=== PATIENT | female | born 1955 | race Caucasian/White ===

== ENCOUNTER → 2016-11-03 | Outpatient (CLI) | payer OTHER ==
--- NOTE | 2016-11-04 10:22 | MM ---
Reason for exam: screening (asymptomatic). Last mammogram was performed 3 years and 3 months ago. History: Patient is postmenopausal. Benign excisional biopsy of the left breast. Took progesterone for 1 year 6 months. Physical Findings: A clinical breast exam by your physician is recommended on an annual basis and results should be correlated with mammographic findings. MG Screening Mammo w CAD Bilateral CC and MLO view(s) were taken. Prior study comparison: July 21, 2013, bilateral digital screening mammo w/CAD. December 18, 2011, bilateral digital screening mammo w/CAD. The breast tissue is heterogeneously dense. This may lower the sensitivity of mammography. Finding: There are typically benign round calcifications in the left breast. There is no discrete abnormality. ASSESSMENT: Benign, BI-RAD 2 RECOMMENDATION: Routine screening mammogram of both breasts in 1 year.
== END | disposition home or self-care (01) ==
LOC: RADMAMWWP 13:13
PROVIDERS: ATTEND Family Medicine
DX: Z12.31 Encounter for screening mammogram for malignant neoplasm of breast (principal)

== ENCOUNTER → 2018-08-09 | Outpatient (CLI) | payer OTHER ==
--- NOTE | 2018-08-15 14:43 | MM ---
Reason for exam: screening (asymptomatic). Last mammogram was performed 1 year and 9 months ago. History: Patient is postmenopausal. Benign excisional biopsy of the left breast. Took progesterone for 1 year 6 months. Physical Findings: A clinical breast exam by your physician is recommended on an annual basis and results should be correlated with mammographic findings. MG 3D Screening Mammo W/Cad Bilateral CC and MLO view(s) were taken. Prior study comparison: November 03, 2016, bilateral MG screening mammo w CAD. July 21, 2013, bilateral digital screening mammo w/CAD. There are scattered fibroglandular densities. New faint oil cyst right anterior upper outer quadrant. No significant changes when compared with prior studies. ASSESSMENT: Negative, BI-RAD 1 RECOMMENDATION: Routine screening mammogram of both breasts in 1 year.
== END | disposition home or self-care (01) ==
LOC: RADMAMWWP 07:22
PROVIDERS: ATTEND Family Medicine
DX: Z12.31 Encounter for screening mammogram for malignant neoplasm of breast (principal)
CPT/HCPCS: 77063; 77067

== ENCOUNTER → 2018-11-15 | Outpatient (CLI) | payer OTHER ==
--- NOTE | 2018-11-15 14:33 | US ---
EXAMINATION TYPE: US venous doppler duplex LE DATE OF EXAM: 11/15/2018 1:37 PM COMPARISON: NONE CLINICAL HISTORY: M79.661 pain right lower limb M79.662 pain left. Frequent leg cramps x 3 months, ge ts worse at night SIDE PERFORMED: Bilateral TECHNIQUE: The lower extremity deep venous system is examined utilizing real time linear array sonog tracey with graded compression, doppler sonography and color-flow sonography. VESSELS IMAGED: External Iliac Vein (EIV) Common Femoral Vein Deep Femoral Vein Greater Saphenous Vein * Femoral Vein Popliteal Vein Small Saphenous Vein * Proximal Calf Veins (* superficial vessels) Grayscale, color doppler, spectral doppler imaging performed of the deep veins of the lower extremiti es. There is normal flow, compressibility, vascular waveforms. Right Leg: Appears negative for DVT Left Leg: Appears negative for DVT IMPRESSION: No sonographic evidence of deep venous thrombosis within the visualized lower extremities .
== END | disposition home or self-care (01) ==
LOC: RADUSWWP 13:07
PROVIDERS: ATTEND Family Medicine
DX: M79.661 Pain in right lower leg (principal); M79.662 Pain in left lower leg
CPT/HCPCS: 93970

== ENCOUNTER → 2018-11-30 | Outpatient (CLI) | payer OTHER | END | disposition home or self-care (01) | LOC: RADECHMAIN 12:13 | PROVIDERS: ATTEND Family Medicine | DX: R00.0 Tachycardia, unspecified (principal); I10 Essential (primary) hypertension | CPT/HCPCS: 93270 ==

== ENCOUNTER → 2021-04-25 | Outpatient (CLI) | payer MEDICARE ==
--- NOTE | 2021-04-29 10:40 | MM ---
Reason for exam: screening (asymptomatic). Last mammogram was performed 2 years and 9 months ago. History: Patient is postmenopausal. Benign excisional biopsy of the left breast. Took hormonal contraceptives for 6 months. Took progesterone for 1 year 6 months. Physical Findings: A clinical breast exam by your physician is recommended on an annual basis and results should be correlated with mammographic findings. MG 3D Screening Mammo W/Cad Bilateral CC and MLO view(s) were taken. Prior study comparison: August 09, 2018, bilateral MG 3d screening mammo w/cad. There are scattered fibroglandular densities. Focal asymmetry, irregular, changed from prior. This finding is changed when compared with previous exams. ASSESSMENT: Incomplete: need additional imaging evaluation, BI-RAD 0 RECOMMENDATION: Special view mammogram of the right breast. If lesion persists on supplemental views, image directed ultrasound is recommended. [facility] will attempt to contact patient to return for supplemental views and ultrasound if indicated.
== END | disposition home or self-care (01) ==
LOC: RADMAMWWP 07:59
PROVIDERS: ATTEND Family Medicine
DX: Z12.31 Encounter for screening mammogram for malignant neoplasm of breast (principal); E78.00 Pure hypercholesterolemia, unspecified; Z82.49 Family history of ischemic heart disease and other diseases of the circulatory system
CPT/HCPCS: 77063; 77067

== ENCOUNTER → 2021-05-14 | Outpatient (CLI) | payer MEDICARE ==
--- NOTE | 2021-05-14 09:58 | MM ---
Reason for exam: additional evaluation requested from abnormal screening. Last mammogram was performed 1 month ago. History: Patient is postmenopausal. Benign excisional biopsy of the left breast. Took hormonal contraceptives for 6 months. Took progesterone for 1 year 6 months. Physical Findings: Nurse did not find any significant physical abnormalities on exam. MG 3D Work Up W/Cad RT CC and ML view(s) were taken of the right breast. Prior study comparison: April 25, 2021, bilateral MG 3d screening mammo w/cad. August 09, 2018, bilateral MG 3d screening mammo w/cad. November 03, 2016, bilateral MG screening mammo w CAD. Focal asymmetry compresses. These results were verbally communicated with the patient and result sheet given to the patient on 05/14/21. ASSESSMENT: Probably benign, BI-RAD 3 RECOMMENDATION: Follow-up diagnostic mammogram of the right breast in 6 months. (2 views)
== END | disposition home or self-care (01) ==
LOC: RADMAMWWP 08:55
PROVIDERS: ATTEND Family Medicine
DX: R92.8 Other abnormal and inconclusive findings on diagnostic imaging of breast (principal)
CPT/HCPCS: 77065; G0279; 77061

== ENCOUNTER → 2021-10-30 | Outpatient (CLI) | payer MEDICARE ==
--- NOTE | 2021-10-30 09:54 | MM ---
Reason for exam: follow-up at short interval from prior study. Last mammogram was performed 6 months ago. History: Patient is postmenopausal. Benign excisional biopsy of the left breast. Took hormonal contraceptives for 6 months. Took progesterone for 1 year 6 months. Physical Findings: A clinical breast exam by your physician is recommended on an annual basis and results should be correlated with mammographic findings. MG 3D Diag Mammo W/Cad RT CC and MLO view(s) were taken of the right breast. Prior study comparison: May 14, 2021, right breast MG 3d work up w/cad RT. April 25, 2021, bilateral MG 3d screening mammo w/cad. August 09, 2018, bilateral MG 3d screening mammo w/cad. November 03, 2016, bilateral MG screening mammo w CAD. There are scattered fibroglandular densities. Asymmetric density/global asymmetry outer right Cc view slightly more prominent from older priors, unchanged for 6 months. Ongoing short follow up recommended. Results were given to the patient verbally at the time of the exam. ASSESSMENT: Probably benign, BI-RAD 3 RECOMMENDATION: Follow-up diagnostic mammogram of both breasts in 6 months.
== END | disposition home or self-care (01) ==
LOC: RADMAMWWP 08:17
PROVIDERS: ATTEND Family Medicine
DX: R92.8 Other abnormal and inconclusive findings on diagnostic imaging of breast (principal)
CPT/HCPCS: 77065; G0279; 77061

== ENCOUNTER 2021-11-10 23:49 | Emergency (ER) | payer MEDICARE ==
[2021-11-11 00:30] VITALS: TEMP 97
[2021-11-11 01:22] LABS: Basophils # (A) 0.1 k/uL (0-0.2); Basophils % (A) 1 %; Eosinophils # (A) 0.3 k/uL (0-0.7); Eosinophils % (A) 2 %; HCT 42.5 % (34.0-46.0); Lymphocytes # (A) 1.8 k/uL (1.0-4.8); Lymphocytes % (A) 15 %; MCH 30.2 pg (25.0-35.0); MCHC 32.8 g/dL (31.0-37.0); Monocytes # (A) 0.5 k/uL (0-1.0); Monocytes % (A) 4 %; Neutrophils # (A) 8.9 k/uL (1.3-7.7); Neutrophils % (A) 76 %; Platelet Count 309 k/uL (150-450); RBC 4.62 m/uL (3.80-5.40); RDW 12.8 % (11.5-15.5); WBC 11.7 k/uL (3.8-10.6)
[2021-11-11 01:37] VITALS: RESP 16
[2021-11-11 02:01] LABS: ALT 26 U/L (4-34); AST 29 U/L (14-36); African American GFR (CKD) 89 (>60 ml/min/1.73 sqM); Albumin 4.3 g/dL (3.5-5.0); Alcohol <10 mg/dL; Alkaline Phosphatase 87 U/L (38-126); Amylase 77 U/L (30-110); Anion Gap 9 mmol/L; Blood Urea Nitrogen 22 mg/dL (7-17); Calcium 9.4 mg/dL (8.4-10.2); Carbon Dioxide 24 mmol/L (22-30); Chloride 105 mmol/L (98-107); Glucose 163 mg/dL (74-99); Lipase 166 U/L (23-300); Non-African American GFR(CKD) 77 (>60 ml/min/1.73 sqM); Potassium 3.7 mmol/L (3.5-5.1); Sodium 138 mmol/L (137-145); Total Bilirubin 0.5 mg/dL (0.2-1.3); Total Protein 7.2 g/dL (6.3-8.2)
[2021-11-11] MEDS ORDERED: KETOROLAC 15 MG/ML 1 ML VIAL IVP STA (02:06)
[2021-11-11] MEDS ORDERED: MORPHINE SULFATE 4 MG/ML SYRINGE IVP STA (02:07)
--- NOTE | 2021-11-11 02:07 | ED ---
Abdominal Pain HPI - General Chief Complaint: Abdominal Pain Stated Complaint: Abdominal Pain Time Seen by Provider: 11/11/21 01:32 Source: patient Mode of arrival: wheelchair Limitations: no limitations - History of Present Illness Initial Comments: Mikala is a 66-year-old female who presents the ER today for evaluation of right lower quadrant right-sided flank pain that began 2 hours prior to arrival. Pain began without provocation is associated with nausea no change in bowel habits. Patient reports she's urinated once since the pain began she didn't noticed any gross hematuria but did have some dysuria with that. Patient has no history of kidney stones. Previous abdominal surgical history includes , hysterectomy and cholecystectomy, she does still have her appendix. - Related Data Home Medications Medication Instructions Recorded Confirmed Bisoprol/Hydrochlorothiazide [Ziac 1 each PO DAILY 11/24/14 11/24/14 5-6.25 MG] FLUoxetine HCL [PROzac] 60 mg PO DAILY 11/24/14 11/24/14 [place]-3 Acid Ethyl Esters [Lovaza] 2 gm PO DAILY 11/24/14 11/24/14 Previous Rx's Medication Instructions Recorded Ibuprofen [Motrin] 600 mg PO Q8HR PRN #20 tab 11/24/14 Methocarbamol [Robaxin-750] 750 mg PO TID PRN #30 tablet 11/24/14 Allergies Allergy/AdvReac Type Severity Reaction Status Date / Time No Known Allergies Allergy Verified 11/11/21 00:27 Review of Systems ROS Statement: Those systems with pertinent positive or pertinent negative responses have been documented in the HPI. ROS Other: All systems not noted in ROS Statement are negative. Past Medical History Past Medical History: Hyperlipidemia History of Any Multi-Drug Resistant Organisms: None Reported Past Surgical History: Cholecystectomy Past Psychological History: No Psychological Hx Reported Smoking Status: Never smoker Past Alcohol Use History: None Reported Past Drug Use History: None Reported General Exam - General Exam Comments Initial Comments: Physical Exam GENERAL: Patient crying, appearing uncomfortable HENT: Normocephalic, Atraumatic. EYES: PERRL, EOMI PULMONARY: Unlabored respirations. CARDIOVASCULAR: RRR Warm and well perfused extremities ABDOMEN: Non-distended, soft, non-peritoneal SKIN: No rashes or bruising : Deferred NEUROLOGIC: Alert and oriented Normal speech Normal gait MUSCULOSKELETAL: Moving all extremities with no apparent injury PSYCHIATRIC: No SI/HI Limitations: no limitations Course Vital Signs 11/11/21 11/11/21 11/11/21 00:27 01:37 01:45 Temperature 97.0 F L Pulse Rate 71 85 20 L Respiratory 20 16 Rate Blood Pressure 125/72 121/65 123/77 O2 Sat by Pulse 99 98 99 Oximetry 11/11/21 11/11/21 11/11/21 02:15 02:45 05:20 Temperature Pulse Rate 24 L 16 L 78 Respiratory 16 Rate Blood Pressure 127/72 112/100 119/73 O2 Sat by Pulse 97 98 Oximetry Medical Decision Making - Medical Decision Making Labs and x-ray were ordered by triage, on x-ray patient refused to stand with shaking reported her pain was too bad Patient was taken to an exam room, she has right-sided flank pain for 2 hours duration suspicious for kidney stone labs and imaging were obtained which confirmed a right-sided 5 mm stone with some hydronephrosis. Patient received Toradol and morphine upon reevaluation she was sleeping comfortably. Patient was provided with Tylenol 3 and Zofran for home, advised to hydrate and return for any worsening symptoms. - Lab Data Result diagrams: 11/11/21 00:46 11/11/21 00:46 Lab Results 11/11/21 11/11/21 11/11/21 Range/Units 00:46 00:46 00:46 WBC 11.7 H (3.8-10.6) k/uL RBC 4.62 (3.80-5.40) m/uL Hgb 14.0 (11.4-16.0) gm/dL Hct 42.5 (34.0-46.0) % MCV 92.0 (80.0-100.0) fL MCH 30.2 (25.0-35.0) pg MCHC 32.8 (31.0-37.0) g/dL RDW 12.8 (11.5-15.5) % Plt Count 309 (150-450) k/uL MPV 7.0 Neutrophils % 76 % Lymphocytes % 15 % Monocytes % 4 % Eosinophils % 2 % Basophils % 1 % Neutrophils # 8.9 H (1.3-7.7) k/uL Lymphocytes # 1.8 (1.0-4.8) k/uL Monocytes # 0.5 (0-1.0) k/uL Eosinophils # 0.3 (0-0.7) k/uL Basophils # 0.1 (0-0.2) k/uL Sodium 138 (137-145) mmol/L Potassium 3.7 (3.5-5.1) mmol/L Chloride 105 (98-107) mmol/L Carbon Dioxide 24 (22-30) mmol/L Anion Gap 9 mmol/L BUN 22 H (7-17) mg/dL Creatinine 0.81 (0.52-1.04) mg/dL Est GFR (CKD-EPI)AfAm 89 (>60 ml/min/1.73 sqM) Est GFR (CKD-EPI)NonAf 77 (>60 ml/min/1.73 sqM) Glucose 163 H (74-99) mg/dL Lactic Ac Sepsis Rflx Plasma Lactic Acid [place] 2.7 H* (0.7-2.0) mmol/L Calcium 9.4 (8.4-10.2) mg/dL Total Bilirubin 0.5 (0.2-1.3) mg/dL AST 29 (14-36) U/L ALT 26 (4-34) U/L Alkaline Phosphatase 87 (38-126) U/L Total Protein 7.2 (6.3-8.2) g/dL Albumin 4.3 (3.5-5.0) g/dL Amylase 77 (30-110) U/L Lipase 166 (23-300) U/L Urine Color Urine Appearance (Clear) Urine pH (5.0-8.0) Ur Specific [place] (1.001-1.035) Urine Protein (Negative) Urine Glucose (UA) (Negative) Urine Ketones (Negative) Urine Blood (Negative) Urine Nitrite (Negative) Urine Bilirubin (Negative) Urine Urobilinogen (<2.0) mg/dL Ur Leukocyte Esterase (Negative) Urine RBC (0-5) /hpf Urine WBC (0-5) /hpf Ur Squamous Epith Cells (0-4) /hpf Calcium Oxalate Crystal (None) /hpf Urine Mucus (None) /hpf Urine Yeast (Budding) (None) /hpf Serum Alcohol <10 mg/dL 11/11/21 11/11/21 Range/Units 02:16 03:32 WBC (3.8-10.6) k/uL RBC (3.80-5.40) m/uL Hgb (11.4-16.0) gm/dL Hct (34.0-46.0) % MCV (80.0-100.0) fL MCH (25.0-35.0) pg MCHC (31.0-37.0) g/dL RDW (11.5-15.5) % Plt Count (150-450) k/uL MPV Neutrophils % % Lymphocytes % % Monocytes % % Eosinophils % % Basophils % % Neutrophils # (1.3-7.7) k/uL Lymphocytes # (1.0-4.8) k/uL Monocytes # (0-1.0) k/uL Eosinophils # (0-0.7) k/uL Basophils # (0-0.2) k/uL Sodium (137-145) mmol/L Potassium (3.5-5.1) mmol/L Chloride (98-107) mmol/L Carbon Dioxide (22-30) mmol/L Anion Gap mmol/L BUN (7-17) mg/dL Creatinine (0.52-1.04) mg/dL Est GFR (CKD-EPI)AfAm (>60 ml/min/1.73 sqM) Est GFR (CKD-EPI)NonAf (>60 ml/min/1.73 sqM) Glucose (74-99) mg/dL Lactic Ac Sepsis Rflx Y Plasma Lactic Acid [place] (0.7-2.0) mmol/L Calcium (8.4-10.2) mg/dL Total Bilirubin (0.2-1.3) mg/dL AST (14-36) U/L ALT (4-34) U/L Alkaline Phosphatase (38-126) U/L Total Protein (6.3-8.2) g/dL Albumin (3.5-5.0) g/dL Amylase (30-110) U/L Lipase (23-300) U/L Urine Color Yellow Urine Appearance Clear (Clear) Urine pH 5.5 (5.0-8.0) Ur Specific [place] >1.050 H (1.001-1.035) Urine Protein Trace H (Negative) Urine Glucose (UA) Negative (Negative) Urine Ketones Negative (Negative) Urine Blood Large H (Negative) Urine Nitrite Negative (Negative) Urine Bilirubin Negative (Negative) Urine Urobilinogen <2.0 (<2.0) mg/dL Ur Leukocyte Esterase Moderate H (Negative) Urine RBC 114 H (0-5) /hpf Urine WBC 11 H (0-5) /hpf Ur Squamous Epith Cells <1 (0-4) /hpf Calcium Oxalate Crystal Rare H (None) /hpf Urine Mucus Rare H (None) /hpf Urine Yeast (Budding) Occasional H (None) /hpf Serum Alcohol mg/dL Disposition Clinical Impression: Kidney stone on right side Disposition: HOME SELF-CARE Condition: Stable Additional Instructions: You have a small kidney stone on the right hand side, you are given pain and nausea medications for home. Return to the ER if pain becomes unbearable, you are vomiting too much to tolerate medications or you develop any new or concerning symptoms. Is patient prescribed a controlled substance at d/c from ED?: No Referrals: Jorje Torres Jr, DO [Primary Care Provider] - 1-2 days
--- NOTE | 2021-11-11 02:43 | CT ---
EXAMINATION TYPE: CT abdomen pelvis w con DATE OF EXAM: 11/11/2021 COMPARISON: 11/24/2014 HISTORY: RLQ pain with N&V hx of cholecystectomy CT DLP: 925 mGycm Automated exposure control for dose reduction was used. CONTRAST: Performed with IV Contrast, patient injected with 100 mL of Isovue 370. Images obtained from the diaphragm to the floor the pelvis with IV contrast. Lung bases show no pulmonary consolidation. There is minimal subsegmental atelectasis right lower lob e. Heart is top normal in size. No pericardial effusion. There is small hiatal hernia. There are clips from cholecystectomy. Liver spleen pancreas and stomach appear intact. The bile ducts are not dilated. There is no adrenal mass. Kidneys show normal size. There is enhancement of both kidneys. There is a delayed right sided pyelogram. There is right-sided hydronephrosis and hydroureter. There is 5 mm obs tructing calculus in the lower right ureter. The bladder distends smoothly. No inguinal hernia. No ev idence of a pelvic mass. No free fluid in the pelvis. There is 2 cm fat-containing umbilical hernia. Appendix is not seen. No significant thickened appendix. The lumbar vertebra have normal alignment. Disc spaces are fairly normal. No compression fracture. [place] pelvis is intact. The hip joints are intact. IMPRESSION: Obstructing calculus in the lower right ureter with mild right-sided hydronephrosis and hydroureter. Obstruction appears new compared to the old exam.
[2021-11-11 04:08] LABS: Appearance,Urine Clear (Clear); Bilirubin,Urine Negative (Negative); Blood,Urine Large (Negative); Budding Yeast,Urine Occasional /hpf; Calcium Oxalate Crystals,Urine Rare /hpf; Color,Urine Yellow; Glucose,Urine (UA) Negative (Negative); Ketones,Urine Negative (Negative); Leukocyte Esterase,Urine Moderate (Negative); Mucus,Urine Rare /hpf; Nitrite,Urine Negative (Negative); PH, Urine 5.5 (5.0-8.0); Protein,Urine Trace (Negative); RBC,Urine 114 /hpf (0-5); Squamous Epithelial Cell,Urine <1 /hpf (0-4); Urobilinogen,Urine <2.0 mg/dL (<2.0); WBC,Urine 11 /hpf (0-5)
[2021-11-11 04:12] LABS: Specific Gravity,Urine >1.050 (1.001-1.035)
[2021-11-11] MEDS ORDERED: ACET/COD 300 MG/30 MG STARTER PACK 6 TAB BTL PO STA (04:45)
[2021-11-11] MEDS ORDERED: ONDANSETRON 4 MG ODT STARTER PACK 2 TAB BTL PO STA (04:45)
[2021-11-11 05:21] VITALS: BP 119/73; PULSE 78
== END 2021-11-11 05:19 | disposition home or self-care (01) ==
LOC: EC 23:49
DX: N13.2 Hydronephrosis with renal and ureteral calculous obstruction (principal)
CPT/HCPCS: 99284 ×2; 96374 ×2; 96375 ×2; 36415; 93005; 80053; 82150; 83605; 83690; 85025; 81001; 87086; 74177; G0480; J2270; J1885; S0119; Q9967; 80320

== ENCOUNTER 2021-11-12 07:09 | Emergency (ER) | payer MEDICARE ==
[2021-11-12 07:16] VITALS: BP 124/82; PULSE 97; RESP 20; TEMP 97.7
[2021-11-12] MEDS ORDERED: SODIUM CHLORIDE 0.9% 500 ML 500 ML IV STA (07:48)
[2021-11-12] MEDS ORDERED: SODIUM CHLORIDE 0.9% 1,000 ML IV STA (07:48)
[2021-11-12] MEDS ORDERED: KETOROLAC 15 MG/ML 1 ML VIAL IVP STA (07:48)
[2021-11-12] MEDS ORDERED: HYDROmorphone 0.5 MG/0.5 ML SYRINGE IVP STA ×2 (07:48→11:23)
[2021-11-12 08:15] LABS: Basophils # (A) 0.1 k/uL (0-0.2); Basophils % (A) 1 %; Eosinophils # (A) 0.2 k/uL (0-0.7); Eosinophils % (A) 3 %; HCT 40.7 % (34.0-46.0); HGB 13.7 gm/dL (11.4-16.0); Lymphocytes # (A) 2.2 k/uL (1.0-4.8); Lymphocytes % (A) 28 %; MCH 30.9 pg (25.0-35.0); MCHC 33.7 g/dL (31.0-37.0); MCV 91.7 fL (80.0-100.0); Mean Platelet Volume 6.6; Monocytes # (A) 0.5 k/uL (0-1.0); Monocytes % (A) 6 %; Neutrophils # (A) 4.8 k/uL (1.3-7.7); Neutrophils % (A) 60 %; Platelet Count 292 k/uL (150-450); RBC 4.44 m/uL (3.80-5.40); RDW 12.9 % (11.5-15.5)
[2021-11-12 08:29] LABS: ALT 23 U/L (4-34); AST 28 U/L (14-36); African American GFR (CKD) >90 (>60 ml/min/1.73 sqM); Albumin 3.9 g/dL (3.5-5.0); Alkaline Phosphatase 82 U/L (38-126); Amylase 100 U/L (30-110); Anion Gap 11 mmol/L; Blood Urea Nitrogen 17 mg/dL (7-17); Calcium 9.4 mg/dL (8.4-10.2); Carbon Dioxide 26 mmol/L (22-30); Chloride 101 mmol/L (98-107); Glucose 111 mg/dL (74-99); Lipase 760 U/L (23-300); Non-African American GFR(CKD) 81 (>60 ml/min/1.73 sqM); Potassium 3.5 mmol/L (3.5-5.1); Sodium 138 mmol/L (137-145); Total Bilirubin 0.8 mg/dL (0.2-1.3); Total Protein 6.8 g/dL (6.3-8.2)
--- NOTE | 2021-11-12 09:33 | ED ---
Female Urogenital HPI - General Chief complaint: Urogenital Stated complaint: Kidney Stone Time Seen by Provider: 11/12/21 07:23 Source: patient, family, RN notes reviewed Mode of arrival: wheelchair Limitations: no limitations - History of Present Illness Initial comments: 66-year-old female presented to emergency from it with chief complaint right-sided abdominal pain. Patient states that she is here 2 days ago for a kidney stone. She states she's been pain-free but pain returned again this morning. Patient does admit nausea states pain is 10 out of 10. Patient does radiate to her back. She has no mental abdominal pain no other complaint abd ominal pain no fevers or chills no other complaints. - Related Data Home Medications Medication Instructions Recorded Confirmed Bisoprol/Hydrochlorothiazide [Ziac 1 tab PO DAILY 11/24/14 11/12/21 5-6.25 MG] [place]-3 Acid Ethyl Esters [Lovaza] 2 gm PO BID 11/24/14 11/12/21 Atorvastatin [Lipitor] 20 mg PO DAILY 11/12/21 11/12/21 FLUoxetine HCL [Sarafem] 60 mg PO DAILY 11/12/21 11/12/21 Previous Rx's Medication Instructions Recorded HYDROcodone/APAP 7.5-325MG [[place] 1 tab PO Q6HR PRN 3 Days #12 tab 11/12/21 7.5-325] Ketorolac [Toradol] 10 mg PO Q8HR #15 tab 11/12/21 Allergies Allergy/AdvReac Type Severity Reaction Status Date / Time No Known Allergies Allergy Verified 11/12/21 09:23 Review of Systems ROS Statement: Those systems with pertinent positive or pertinent negative responses have been documented in the HPI. ROS Other: All systems not noted in ROS Statement are negative. Past Medical History Past Medical History: Hyperlipidemia History of Any Multi-Drug Resistant Organisms: None Reported Past Surgical History: Cholecystectomy Past Psychological History: No Psychological Hx Reported Smoking Status: Never smoker Past Alcohol Use History: None Reported Past Drug Use History: None Reported General Exam Limitations: no limitations General appearance: alert, in no apparent distress Head exam: Present: atraumatic, normocephalic, normal inspection Eye exam: Present: normal appearance, PERRL, EOMI. Absent: scleral icterus, conjunctival injection, periorbital swelling ENT exam: Present: normal exam, normal oropharynx, mucous membranes moist Neck exam: Present: normal inspection, full ROM. Absent: tenderness, meningismus, lymphadenopathy Respiratory exam: Present: normal lung sounds bilaterally. Absent: respiratory distress, wheezes, rales, rhonchi, stridor Cardiovascular Exam: Present: regular rate, normal rhythm, normal heart sounds. Absent: systolic murmur, diastolic murmur, rubs, gallop, clicks GI/Abdominal exam: Present: soft, normal bowel sounds. Absent: distended, tenderness, guarding, rebound, rigid Back exam: Absent: CVA tenderness (R), CVA tenderness (L) Course Vital Signs 11/12/21 07:12 Temperature 97.7 F Pulse Rate 97 Respiratory 20 Rate Blood Pressure 124/82 O2 Sat by Pulse 98 Oximetry Medical Decision Making - Medical Decision Making 66-year-old female presented for right-sided abdominal pain. Patient does have a history of kidney stone recent CT. Patient's urinalysis remains of hematuria labs revealed no specific findings mild elevated lipase though no pain associated with this. Patient will be discharged advised increased fluids have follow-up with urology as she was priorly instructed. - Lab Data Result diagrams: 11/12/21 08:08 11/12/21 08:08 Lab Results 11/12/21 11/12/21 11/12/21 Range/Units 08:08 08:08 10:15 WBC 8.0 (3.8-10.6) k/uL RBC 4.44 (3.80-5.40) m/uL Hgb 13.7 (11.4-16.0) gm/dL Hct 40.7 (34.0-46.0) % MCV 91.7 (80.0-100.0) fL MCH 30.9 (25.0-35.0) pg MCHC 33.7 (31.0-37.0) g/dL RDW 12.9 (11.5-15.5) % Plt Count 292 (150-450) k/uL MPV 6.6 Neutrophils % 60 % Lymphocytes % 28 % Monocytes % 6 % Eosinophils % 3 % Basophils % 1 % Neutrophils # 4.8 (1.3-7.7) k/uL Lymphocytes # 2.2 (1.0-4.8) k/uL Monocytes # 0.5 (0-1.0) k/uL Eosinophils # 0.2 (0-0.7) k/uL Basophils # 0.1 (0-0.2) k/uL Sodium 138 (137-145) mmol/L Potassium 3.5 (3.5-5.1) mmol/L Chloride 101 (98-107) mmol/L Carbon Dioxide 26 (22-30) mmol/L Anion Gap 11 mmol/L BUN 17 (7-17) mg/dL Creatinine 0.77 (0.52-1.04) mg/dL Est GFR (CKD-EPI)AfAm >90 (>60 ml/min/1.73 sqM) Est GFR (CKD-EPI)NonAf 81 (>60 ml/min/1.73 sqM) Glucose 111 H (74-99) mg/dL Calcium 9.4 (8.4-10.2) mg/dL Total Bilirubin 0.8 (0.2-1.3) mg/dL AST 28 (14-36) U/L ALT 23 (4-34) U/L Alkaline Phosphatase 82 (38-126) U/L Total Protein 6.8 (6.3-8.2) g/dL Albumin 3.9 (3.5-5.0) g/dL Amylase 100 (30-110) U/L Lipase 760 H (23-300) U/L Urine Color Yellow Urine Appearance Cloudy H (Clear) Urine pH 5.5 (5.0-8.0) Ur Specific [place] 1.022 (1.001-1.035) Urine Protein Trace H (Negative) Urine Glucose (UA) Negative (Negative) Urine Ketones Negative (Negative) Urine Blood Large H (Negative) Urine Nitrite Negative (Negative) Urine Bilirubin Negative (Negative) Urine Urobilinogen 2.0 (<2.0) mg/dL Ur Leukocyte Esterase Large H (Negative) Urine RBC 110 H (0-5) /hpf Urine WBC 25 H (0-5) /hpf Ur Squamous Epith Cells 2 (0-4) /hpf Urine Bacteria Rare H (None) /hpf Hyaline Casts 10 H (0-2) /lpf Urine Mucus Few H (None) /hpf Disposition Clinical Impression: Kidney stone on right side Disposition: HOME SELF-CARE Condition: Stable Instructions (If sedation given, give patient instructions): Kidney Stones (ED) Additional Instructions: Please return to the Emergency Department if symptoms worsen or any other juan rns. Prescriptions: HYDROcodone/APAP 7.5-325MG [[place] 7.5-325] 1 tab PO Q6HR PRN 3 Days #12 tab PRN Reason: pain Ketorolac [Toradol] 10 mg PO Q8HR #15 tab Is patient prescribed a controlled substance at d/c from ED?: Yes When asked, does pt state using other controlled substances?: No If prescribed controlled substance>3 days was MAPS reviewed?: Prescribed <3 Days If opioid is for acute pain is fill amount 7 days or less?: Yes If Rx opioid, was Start Talking consent form obtained?: Yes Referrals: Jorje Torres Jr, DO [Primary Care Provider] - 1-2 days Ronald Holland MD [STAFF PHYSICIAN] - 1-2 days Time of Disposition: 11:45
[2021-11-12] MEDS ORDERED: HYDROcodone/APAP 5-325MG 1 EACH TAB PO STA (10:38)
[2021-11-12 10:47] LABS: Appearance,Urine Cloudy (Clear); Bacteria,Urine Rare /hpf; Bilirubin,Urine Negative (Negative); Blood,Urine Large (Negative); Color,Urine Yellow; Glucose,Urine (UA) Negative (Negative); Hyaline Casts,Urine 10 /lpf (0-2); Ketones,Urine Negative (Negative); Leukocyte Esterase,Urine Large (Negative); Mucus,Urine Few /hpf; Nitrite,Urine Negative (Negative); PH, Urine 5.5 (5.0-8.0); Protein,Urine Trace (Negative); RBC,Urine 110 /hpf (0-5); Specific Gravity,Urine 1.022 (1.001-1.035); Squamous Epithelial Cell,Urine 2 /hpf (0-4); WBC,Urine 25 /hpf (0-5)
== END 2021-11-12 12:38 | disposition home or self-care (01) ==
LOC: EC 07:09
DX: N20.0 Calculus of kidney (principal); R74.8 Abnormal levels of other serum enzymes; E78.5 Hyperlipidemia, unspecified; Z79.899 Other long term (current) drug therapy
CPT/HCPCS: 36415; 80053; 82150; 83690; 85025; 81001; 87086; 99284; 96374; 96375; 96376; 96361; J1885; J1170

== ENCOUNTER → 2021-12-17 | Outpatient (CLI) | payer MEDICARE ==
--- NOTE | 2021-12-18 11:36 | CT ---
EXAMINATION TYPE: CT abdomen pelvis wo con DATE OF EXAM: 12/17/2021 COMPARISON: 11/11/2021 INDICATION: Pt c/o back pain, microscopic hematuria, history of renal stones DLP: 514.8 mGycm, Automated exposure control for dose reduction was used. CONTRAST: 0 mL of Isovue 300. Study performed without Oral Contrast TECHNIQUE: Axial images were obtained from above the diaphragm to the pubic rami in the axial plane a t 5 mm thick sections. Reconstructed images are reviewed on the computer in the coronal plane. FINDINGS: Limited CT sections are obtained the lung bases. The lung bases are clear. CT ABDOMEN: Liver: Normal Spleen: Normal Pancreas: Normal Adrenal glands: The adrenal glands are normal. Gallbladder: Surgically absent Kidneys: No masses are evident. No hydronephrosis is present. No cysts are present. No renal stone s are identified. Aorta: Vascular calcification is within the aorta. Inferior vena cava: Normal. CT PELVIS: Loops of bowel within the abdomen and pelvis are normal. The study is performed without contrast material in bowel evaluation. Appendix: Not visualized. No suspicious dilated tubular structure or inflammatory changes evident. Urinary bladder: Normal. Genitourinary structures: Uterus and ovaries are not identified. Osseous structures: No suspicious lytic or sclerotic lesions. Facet degenerative changes are present. IMPRESSIONS: 1. No suspicious renal stones.
== END | disposition home or self-care (01) ==
LOC: RADCTMAIN 10:27
PROVIDERS: ATTEND Urology
DX: N20.1 Calculus of ureter (principal)
CPT/HCPCS: 74176

== ENCOUNTER 2021-12-22 22:51 | Observation (INO) | payer MEDICARE ==
[2021-12-22] MEDS ORDERED: ONDANSETRON 4 MG/2 ML VIAL IVP STA (23:34)
[2021-12-22] MEDS ORDERED: MORPHINE SULFATE 4 MG/ML SYRINGE IV STA (23:34)
[2021-12-22] MEDS ORDERED: KETOROLAC 15 MG/ML 1 ML VIAL IVP STA (23:34)
[2021-12-22] MEDS ORDERED: SODIUM CHLORIDE 0.9% 1,000 ML IV STA ×2 (23:34)
--- NOTE | 2021-12-22 23:35 | ED ---
Recheck HPI - General Chief Complaint: Abdominal Pain Stated Complaint: Kidney Stone Time Seen by Provider: 12/22/21 23:34 Source: patient, family, RN notes reviewed, old records reviewed Mode of arrival: ambulatory Limitations: no limitations - History of Present Illness Initial Comments: This is a 66-year-old female DEL with history of back pain coming in for severe back pain back pain right-sided flank pain and feels like she has to urinate a lot. Patient has no travel history no sick contacts. She has history of kidney stones. MD Complaint: medication refill request -: days(s) Returns Today for: persistent/worsening pain related to initial visit Symptoms Since Prior Visit: worsening pain Associated Symptoms: nausea, abdominal pain Treatments Prior to Arrival: Given Pain Meds on - Related Data Home Medications Medication Instructions Recorded Confirmed Bisoprol/Hydrochlorothiazide [Ziac 1 tab PO DAILY 11/24/14 11/12/21 5-6.25 MG] [place]-3 Acid Ethyl Esters [Lovaza] 2 gm PO BID 11/24/14 11/12/21 Atorvastatin [Lipitor] 20 mg PO DAILY 11/12/21 11/12/21 FLUoxetine HCL [Sarafem] 60 mg PO DAILY 11/12/21 11/12/21 Previous Rx's Medication Instructions Recorded HYDROcodone/APAP 7.5-325MG [[place] 1 tab PO Q6HR PRN 3 Days #12 tab 11/12/21 7.5-325] Ketorolac [Toradol] 10 mg PO Q8HR #15 tab 11/12/21 Allergies Allergy/AdvReac Type Severity Reaction Status Date / Time No Known Allergies Allergy Verified 12/22/21 23:06 Review of Systems ROS Statement: Those systems with pertinent positive or pertinent negative responses have been documented in the HPI. ROS Other: All systems not noted in ROS Statement are negative. Past Medical History Past Medical History: Hyperlipidemia History of Any Multi-Drug Resistant Organisms: None Reported Past Surgical History: Cholecystectomy Past Psychological History: No Psychological Hx Reported Smoking Status: Never smoker Past Alcohol Use History: None Reported Past Drug Use History: None Reported General Exam Limitations: no limitations General appearance: anxious, in distress Head exam: Present: atraumatic, normocephalic, normal inspection Eye exam: Present: normal appearance, PERRL, EOMI. Absent: scleral icterus, conjunctival injection, periorbital swelling ENT exam: Present: normal exam, mucous membranes moist Neck exam: Present: normal inspection. Absent: tenderness, meningismus, lymphadenopathy Respiratory exam: Present: normal lung sounds bilaterally. Absent: respiratory distress, wheezes, rales, rhonchi, stridor Cardiovascular Exam: Present: regular rate, normal rhythm, normal heart sounds. Absent: systolic murmur, diastolic murmur, rubs, gallop, clicks GI/Abdominal exam: Present: soft, normal bowel sounds. Absent: distended, tenderness, guarding, rebound, rigid Extremities exam: Present: normal inspection, full ROM, normal capillary refill. Absent: tenderness, pedal edema, joint swelling, calf tenderness Back exam: Present: normal inspection Neurological exam: Present: alert, oriented X3, CN II-XII intact Psychiatric exam: Present: normal affect, normal mood Skin exam: Present: warm, dry, intact, normal color. Absent: rash Course Vital Signs 12/22/21 23:02 Temperature 98.3 F Pulse Rate 77 Respiratory 22 Rate O2 Sat by Pulse 98 Oximetry - Reevaluation(s) Reevaluation #1: 12/23/21 02:04 Medical record is reviewed Reevaluation #2: 12/23/21 02:04 Patient has pain control Reevaluation #3: 12/23/21 02:04 Patient informed of results and questions answered - Consultations Consultation #1: Spoke with Dr. Torres who agrees to admit the patient Medical Decision Making - Medical Decision Making 66 female has right-sided kidney stone with obstruction could be questionable polynephritis for infection as well. Patient be admitted for pain control and urology to evaluate and 60 - Lab Data Result diagrams: 12/22/21 23:36 12/22/21 23:36 Lab Results 12/22/21 12/22/21 12/22/21 Range/Units 23:36 23:36 23:45 WBC 8.6 (3.8-10.6) k/uL RBC 4.52 (3.80-5.40) m/uL Hgb 13.4 (11.4-16.0) gm/dL Hct 41.1 (34.0-46.0) % MCV 90.9 (80.0-100.0) fL MCH 29.6 (25.0-35.0) pg MCHC 32.6 (31.0-37.0) g/dL RDW 12.2 (11.5-15.5) % Plt Count 324 (150-450) k/uL MPV 6.7 Neutrophils % 46 % Lymphocytes % 39 % Monocytes % 7 % Eosinophils % 4 % Basophils % 1 % Neutrophils # 4.0 (1.3-7.7) k/uL Lymphocytes # 3.4 (1.0-4.8) k/uL Monocytes # 0.6 (0-1.0) k/uL Eosinophils # 0.3 (0-0.7) k/uL Basophils # 0.1 (0-0.2) k/uL Sodium 137 (137-145) mmol/L Potassium 4.1 (3.5-5.1) mmol/L Chloride 103 (98-107) mmol/L Carbon Dioxide 26 (22-30) mmol/L Anion Gap 8 mmol/L BUN 28 H (7-17) mg/dL Creatinine 0.80 (0.52-1.04) mg/dL Est GFR (CKD-EPI)AfAm 90 (>60 ml/min/1.73 sqM) Est GFR (CKD-EPI)NonAf 78 (>60 ml/min/1.73 sqM) Glucose 109 H (74-99) mg/dL Calcium 9.3 (8.4-10.2) mg/dL Total Bilirubin 0.2 (0.2-1.3) mg/dL AST 27 (14-36) U/L ALT 28 (4-34) U/L Alkaline Phosphatase 91 (38-126) U/L Total Protein 6.9 (6.3-8.2) g/dL Albumin 4.1 (3.5-5.0) g/dL Amylase 78 (30-110) U/L Lipase 192 (23-300) U/L Urine Color Yellow Urine Appearance Clear (Clear) Urine pH 5.5 (5.0-8.0) Ur Specific [place] 1.027 (1.001-1.035) Urine Protein Trace H (Negative) Urine Glucose (UA) Negative (Negative) Urine Ketones Negative (Negative) Urine Blood Large H (Negative) Urine Nitrite Negative (Negative) Urine Bilirubin Negative (Negative) Urine Urobilinogen <2.0 (<2.0) mg/dL Ur Leukocyte Esterase Large H (Negative) Urine RBC 39 H (0-5) /hpf Urine WBC 87 H (0-5) /hpf Ur Squamous Epith Cells 1 (0-4) /hpf Urine Bacteria Rare H (None) /hpf Hyaline Casts 1 (0-2) /lpf Urine Mucus Rare H (None) /hpf - Radiology Data Radiology results: report reviewed (CT of the abdomen and pelvis is positive for kidney stone), image reviewed Disposition Clinical Impression: Abdominal pain, Right ureteral stone, UTI (urinary tract infection) Disposition: ADMITTED IP TO THIS [facility] Condition: Serious Is patient prescribed a controlled substance at d/c from ED?: No Referrals: Jorje Torres Jr, DO [Primary Care Provider] - 1-2 days
[2021-12-22 23:48] LABS: Basophils # (A) 0.1 k/uL (0-0.2); Basophils % (A) 1 %; Eosinophils # (A) 0.3 k/uL (0-0.7); Eosinophils % (A) 4 %; HCT 41.1 % (34.0-46.0); HGB 13.4 gm/dL (11.4-16.0); Lymphocytes # (A) 3.4 k/uL (1.0-4.8); Lymphocytes % (A) 39 %; MCH 29.6 pg (25.0-35.0); MCHC 32.6 g/dL (31.0-37.0); MCV 90.9 fL (80.0-100.0); Mean Platelet Volume 6.7; Monocytes # (A) 0.6 k/uL (0-1.0); Monocytes % (A) 7 %; Neutrophils % (A) 46 %; Platelet Count 324 k/uL (150-450); RBC 4.52 m/uL (3.80-5.40); RDW 12.2 % (11.5-15.5); WBC 8.6 k/uL (3.8-10.6)
[2021-12-23 00:01] LABS: Albumin 4.1 g/dL (3.5-5.0); Calcium 9.3 mg/dL (8.4-10.2); Potassium 4.1 mmol/L (3.5-5.1); Total Bilirubin 0.2 mg/dL (0.2-1.3); Total Protein 6.9 g/dL (6.3-8.2)
[2021-12-23 00:36] LABS: Appearance,Urine Clear (Clear); Bacteria,Urine Rare /hpf; Bilirubin,Urine Negative (Negative); Blood,Urine Large (Negative); Color,Urine Yellow; Glucose,Urine (UA) Negative (Negative); Hyaline Casts,Urine 1 /lpf (0-2); Ketones,Urine Negative (Negative); Leukocyte Esterase,Urine Large (Negative); Mucus,Urine Rare /hpf; Nitrite,Urine Negative (Negative); PH, Urine 5.5 (5.0-8.0); Protein,Urine Trace (Negative); RBC,Urine 39 /hpf (0-5); Specific Gravity,Urine 1.027 (1.001-1.035); Squamous Epithelial Cell,Urine 1 /hpf (0-4); Urobilinogen,Urine <2.0 mg/dL (<2.0); WBC,Urine 87 /hpf (0-5)
--- NOTE | 2021-12-23 01:32 | CT ---
EXAMINATION TYPE: CT abdomen pelvis w con DATE OF EXAM: 12/23/2021 COMPARISON: 12/17/2021 HISTORY: abdominal pain, LS spine pain CT DLP: 1038.4 mGycm Automated exposure control for dose reduction was used. CONTRAST: Performed with IV Contrast, patient injected with 100 mL of Isovue 300. The lung bases are clear of consolidation. No pleural effusion. Heart size is normal. No pericardial effusion. Liver and spleen are intact. There is no pancreatic mass. There are clips from cholecystectomy. Stoma ch is intact. The bile ducts are not dilated. There is no adrenal mass. Right kidney shows perinephric fluid and hydronephrosis. There is right-luis ed hydroureter and obstructing 5 mm calculus at the ureterovesical junction. There are numerous vascu lar calcifications in the pelvis. There is no retroperitoneal adenopathy. No inguinal hernia. No free fluid in the pelvis. Cecum is low in the pelvis. Appendix not seen. No sign of thickened appendix. The lumbar vertebra appear intact. No compression fracture. Posterior elements are intact. The bony p [place] is intact. Hip joints appear normal. IMPRESSION: There is moderate right-sided hydronephrosis and hydroureter which is a dramatic change compared to l ast exam. There is perinephric fluid and consistent with high-grade obstruction. There appears to be obstructing calculus at the right ureterovesical junction. A right side urinary tract calculus is not identified on the recent exam. It is unclear how this relatively large calculus appears in the short time period.
[2021-12-23] MEDS ORDERED: NALOXONE 0.4 MG/ML 1 ML VIAL IV PRN (02:02)
[2021-12-23] MEDS ORDERED: ACETAMINOPHEN TAB 325 MG TAB PO PRN (02:02)
[2021-12-23] MEDS ORDERED: ONDANSETRON 4 MG/2 ML VIAL IVP PRN ×2 (02:02→18:58)
[2021-12-23] MEDS: SODIUM CHLORIDE 0.9% 1,000 ML IV SCH ×3 (02:50→20:58)
[2021-12-23] MEDS: MORPHINE SULFATE 4 MG/ML SYRINGE IV PRN ×4 (02:50→14:52)
--- NOTE | 2021-12-23 08:12 | P.GSCN ---
History of Present Illness Consult date: 12/23/21 History of present illness: 66 yo female admitted due to a 5 mm distal ureteral stone with a possible uti. SHe was seen by Dr Holland last week for persistent back and suspicion of a stne. A ct scan was done and didnt identify a stone. SHe has not had previous stones. SHe came to the er last nite because the pain worsened. The ct scan this time identified rt hydro to a distal uvj stone, 5mm. Her ua shows wbc but her serum wbc are normal and she is afebrile. Review of Systems All systems: negative - Constitutional Denies fever, Denies weight loss - EENT Eyes: denies blurred vision Ears, nose, mouth and throat: Denies dysphagia - Cardiovascular Denies chest pain, Denies shortness of breath - Respiratory Denies cough, Denies 7 - Gastrointestinal Reports as per HPI - Genitourinary Genitourinary: Denies dysuria, Denies hematuria - Integumentary Denies rash, Denies unusual bruising - Neurological Denies headaches, Denies syncope - Hematologic/Lymphatic Denies easy bleeding, Denies easy bruising Past Medical History Past Medical History: Hyperlipidemia History of Any Multi-Drug Resistant Organisms: None Reported Past Surgical History: Cholecystectomy Past Psychological History: No Psychological Hx Reported Smoking Status: Never smoker Past Alcohol Use History: None Reported Past Drug Use History: None Reported Medications and Allergies Home Medications Medication Instructions Recorded Confirmed Type Bisoprol/Hydrochlorothiazide [Ziac 1 tab PO DAILY 11/24/14 12/23/21 History 5-6.25 MG] [place]-3 Acid Ethyl Esters [Lovaza] 2 gm PO DAILY 11/24/14 12/23/21 History Atorvastatin [Lipitor] 20 mg PO DAILY 11/12/21 12/23/21 History FLUoxetine HCL [Sarafem] 60 mg PO DAILY 11/12/21 12/23/21 History Magnesium 250 mg PO DAILY 12/23/21 12/23/21 History Niacin 500 mg PO HS 12/23/21 12/23/21 History Allergies Allergy/AdvReac Type Severity Reaction Status Date / Time No Known Allergies Allergy Verified 12/23/21 06:52 Surgical - Exam Vital Signs Temp Pulse Resp Pulse Ox 98.3 F 77 22 98 12/22/21 23:02 12/22/21 23:02 12/22/21 23:02 12/22/21 23:02 - General well nourished, moderate distress - Eyes PERRL - ENT no hearing loss - Neck no masses - Respiratory normal expansion, normal respiratory effort - Cardiovascular Rhythm: regular - Abdomen Abdomen: soft, tender - Integumentary no rash - Neurologic normal coordination, normal sensation - Musculoskeletal normal posture - Psychiatric oriented to time, oriented to person, oriented to place, speech is normal, tang ry intact Results - Labs 12/22/21 23:36 12/22/21 23:36 Abnormal Lab Results - Last 24 Hours (Table) 12/22/21 12/22/21 Range/Units 23:36 23:45 BUN 28 H (7-17) mg/dL Glucose 109 H (74-99) mg/dL Urine Protein Trace H (Negative) Urine Blood Large H (Negative) Ur Leukocyte Esterase Large H (Negative) Urine RBC 39 H (0-5) /hpf Urine WBC 87 H (0-5) /hpf Urine Bacteria Rare H (None) /hpf Urine Mucus Rare H (None) /hpf Diabetes panel 12/22/21 Range/Units 23:36 Sodium 137 (137-145) mmol/L Potassium 4.1 (3.5-5.1) mmol/L Chloride 103 (98-107) mmol/L Carbon Dioxide 26 (22-30) mmol/L BUN 28 H (7-17) mg/dL Creatinine 0.80 (0.52-1.04) mg/dL Glucose 109 H (74-99) mg/dL Calcium 9.3 (8.4-10.2) mg/dL AST 27 (14-36) U/L ALT 28 (4-34) U/L Alkaline Phosphatase 91 (38-126) U/L Total Protein 6.9 (6.3-8.2) g/dL Albumin 4.1 (3.5-5.0) g/dL Calcium panel 12/22/21 Range/Units 23:36 Calcium 9.3 (8.4-10.2) mg/dL Albumin 4.1 (3.5-5.0) g/dL Pituitary panel 12/22/21 Range/Units 23:36 Sodium 137 (137-145) mmol/L Potassium 4.1 (3.5-5.1) mmol/L Chloride 103 (98-107) mmol/L Carbon Dioxide 26 (22-30) mmol/L BUN 28 H (7-17) mg/dL Creatinine 0.80 (0.52-1.04) mg/dL Glucose 109 H (74-99) mg/dL Calcium 9.3 (8.4-10.2) mg/dL Adrenal panel 12/22/21 Range/Units 23:36 Sodium 137 (137-145) mmol/L Potassium 4.1 (3.5-5.1) mmol/L Chloride 103 (98-107) mmol/L Carbon Dioxide 26 (22-30) mmol/L BUN 28 H (7-17) mg/dL Creatinine 0.80 (0.52-1.04) mg/dL Glucose 109 H (74-99) mg/dL Calcium 9.3 (8.4-10.2) mg/dL Total Bilirubin 0.2 (0.2-1.3) mg/dL AST 27 (14-36) U/L ALT 28 (4-34) U/L Alkaline Phosphatase 91 (38-126) U/L Total Protein 6.9 (6.3-8.2) g/dL Albumin 4.1 (3.5-5.0) g/dL - Imaging CT scan - abdomen: report reviewed, image reviewed CT scan - pelvis: report reviewed, image reviewed Assessment and Plan Assessment: Impression: right ureteral stone woith obstruction and colic. Plan: The patient is being admitted. After discussing treatment options I will set her up for a right ureteroscopy with laser lithotripsy tomorrow.
[2021-12-23] MEDS ORDERED: BISOPROLOL-HCTZ 5-6.25 MG 1 EACH TAB PO SCH (09:00)
[2021-12-23] MEDS ORDERED: traMADol 50 MG TAB PO PRN (09:12)
[2021-12-23] MEDS: Omega-3 Acid Ethyl Esters [Lovaza] 1 GM Capsule PO SCH (10:26)
[2021-12-23] MEDS: MAGNESIUM OXIDE 400 MG TAB PO SCH (10:38)
[2021-12-23] MEDS: ATORVASTATIN 20 MG TAB PO SCH (10:39)
[2021-12-23] MEDS: FLUoxetine HCL 20 MG CAP PO SCH (10:39)
[2021-12-23] MEDS: PANTOPRAZOLE 40 MG/10 ML VIAL IVP SCH (10:39)
[2021-12-23] MEDS: BISOPROLOL 5 MG TAB PO SCH (10:39)
--- NOTE | 2021-12-23 12:44 | P.HPIM ---
History of Present Illness H&P Date: 12/23/21 This is a pleasant 66-year-old female with past medical history of hyperlipidemia, hypertension, obesity and multiple other medical issues presented to the ER with worsening right flank pain. Patient had seen last week for right flank/back pain with possible stone. CT completed at that time did not report any suspicious renal stones. Reports no prior stones, but positive family history. Repeat computed tomography scan reported moderate right-sided hydronephrosis and hydroureter, perinephric fluid consistent with high-grade obstruction, obstructing calculus at the right ureterovesical junction. Afebrile, normal WBC. BUN 28, creatinine 0.8. UA reporting rare bacteria, elevated WBCs 87, large leukocytes negative nitrates, large blood, culture pending. Reports frequency, denies dysuria or hematuria. Urology consult in place .Also reports incidental recent falls 2. Initial fall in October, side walk with unlevel cement, tripped and fell without syncope, then yesterday tripped on [facility], no syncope, no head trauma, landed on her right side. Denies lightheadedness dizziness or focal deficits. Denies syncope, denies chest pain, palpitations or shortness of breath. Has not had an eye exam for many years. Placed on IV fluid hydration, IV antibiotic ceftriaxone. Review of Systems ROS Statement: Those systems with pertinent positive or pertinent negative responses have been documented in the HPI. ROS Other: All systems not noted in ROS Statement are negative. Past Medical History Past Medical History: Hyperlipidemia History of Any Multi-Drug Resistant Organisms: None Reported Past Surgical History: Cholecystectomy Past Anesthesia/Blood Transfusion Reactions: No Reported Reaction Past Psychological History: No Psychological Hx Reported Smoking Status: Never smoker Past Alcohol Use History: None Reported Past Drug Use History: None Reported Medications and Allergies Home Medications Medication Instructions Recorded Confirmed Type Bisoprol/Hydrochlorothiazide [Ziac 1 tab PO DAILY 11/24/14 12/23/21 History 5-6.25 MG] [place]-3 Acid Ethyl Esters [Lovaza] 2 gm PO DAILY 11/24/14 12/23/21 History Atorvastatin [Lipitor] 20 mg PO DAILY 11/12/21 12/23/21 History FLUoxetine HCL [Sarafem] 60 mg PO DAILY 11/12/21 12/23/21 History Magnesium 250 mg PO DAILY 12/23/21 12/23/21 History Niacin 500 mg PO HS 12/23/21 12/23/21 History Allergies Allergy/AdvReac Type Severity Reaction Status Date / Time No Known Allergies Allergy Verified 12/23/21 06:52 Physical Exam Vitals: Vital Signs Temp Pulse Pulse Resp BP BP Pulse Ox 12/23/21 08:00 17 12/23/21 07:00 97.7 F 66 20 143/87 93 L 12/23/21 06:14 86 18 121/76 97 12/23/21 03:51 78 18 137/77 98 12/22/21 23:02 98.3 F 77 22 98 Intake and Output 12/22/21 12/23/21 12/23/21 22:59 06:59 14:59 Other: # Voids 1 Weight 72.575 kg PHYSICAL EXAM: VITAL SIGNS: [As above] GENERAL: Sitting up in bed, no acute distress HEENT: Conjunctivae normal. eyes normal. NECK: Supple, No JVD. No thyroid enlargement. No LNs CARDIOVASCULAR: S1, S2 regular. No murmur RESPIRATION: Breath sounds diminished in the bases. No rhonchi or crackles. No bronchial breathing. ABDOMEN: Soft, right flank tenderness, No guarding. no masses palpable. No ascites, No hepatosplenomegaly.Bowel sounds heard. LEGS: No edema. no swelling PSYCHIATRY: Alert and oriented X3, mood and affect normal. NERVOUS SYSTEM: Cranial N 2-12 grossly normal. Moves all 4 limbs. No focal deficits. Strength and sensation grossly intact. Skin: Warm and dry, no rashes Results CBC & Chem 7: 12/22/21 23:36 12/22/21 23:36 Labs: Abnormal Lab Results - Last 24 Hours (Table) 12/22/21 12/22/21 Range/Units 23:36 23:45 BUN 28 H (7-17) mg/dL Glucose 109 H (74-99) mg/dL Urine Protein Trace H (Negative) Urine Blood Large H (Negative) Ur Leukocyte Esterase Large H (Negative) Urine RBC 39 H (0-5) /hpf Urine WBC 87 H (0-5) /hpf Urine Bacteria Rare H (None) /hpf Urine Mucus Rare H (None) /hpf Assessment and Plan Assessment: Acute right flank pain, moderate right-sided hydronephrosis and hydroureter, high-grade obstruction with obstructing calculus at right ureterovesical junction Dehydration, mild Possible acute UTI, culture pending, Recent fall, recommend following up with guinea pig breeder outpatient, has not had a recent eye exam in years. Hypertension Hyperlipidemia Obesity Plan: Continue on current medication regime ,monitoring and symptomatic treatment. Maintain IV fluid hydration, IV antibiotics. Pain management, Ultram added to med regimen. Increase ambulation as tolerated with assistance. Evaluated by urology with recommendations noted and appreciated.Nothing by mouth at midnight for her ureteroscopy with lithotripsy per urology. Patient recommended to follow-up for full eye exam outpatient. The impression and plan of care has been dictated as directed. : I performed a history and examination of this patient, discussed the same with the dictator. I agree with the dictator's note ,documented as a scribe. Any additional findings or plans will be noted.
[2021-12-23] MEDS ORDERED: LACTATED RINGERS 1,000 ML IV SCH (18:58)
[2021-12-23] MEDS ORDERED: DEXAMETHASONE SOD PHOSPHATE 4 MG/ML 1 ML VIAL IV PRN (18:58)
[2021-12-23] MEDS ORDERED: LIDOCAINE 1% (10MG/ML) FOR IV START INTRADERMA PRN (18:58)
[2021-12-23] MEDS ORDERED: MIDAZOLAM 2 MG/2 ML VIAL IV PRN (18:58)
[2021-12-23] MEDS ORDERED: NIACIN TR 500 MG CAPLET PO SCH (21:00)
[2021-12-24] MEDS: SODIUM CHLORIDE 0.9% 1,000 ML IV SCH (03:24)
[2021-12-24] MEDS ORDERED: HYDROmorphone 0.5 MG/0.5 ML SYRINGE IVP PRN (07:00)
[2021-12-24 07:57] LABS: African American GFR (CKD) >90 (>60 ml/min/1.73 sqM); Anion Gap 3 mmol/L; Blood Urea Nitrogen 19 mg/dL (7-17); Carbon Dioxide 26 mmol/L (22-30); Chloride 107 mmol/L (98-107); Glucose 105 mg/dL (74-99); Non-African American GFR(CKD) 80 (>60 ml/min/1.73 sqM); Potassium 4.5 mmol/L (3.5-5.1); Sodium 136 mmol/L (137-145)
[2021-12-24 08:10] LABS: Basophils % (A) 1 %; Eosinophils # (A) 0.3 k/uL (0-0.7); Eosinophils % (A) 5 %; HCT 35.3 % (34.0-46.0); HGB 11.1 gm/dL (11.4-16.0); Lymphocytes # (A) 1.4 k/uL (1.0-4.8); Lymphocytes % (A) 22 %; MCH 29.9 pg (25.0-35.0); MCHC 31.5 g/dL (31.0-37.0); MCV 94.9 fL (80.0-100.0); Mean Platelet Volume 6.8; Monocytes # (A) 0.4 k/uL (0-1.0); Monocytes % (A) 7 %; Neutrophils % (A) 64 %; Platelet Count 232 k/uL (150-450); RBC 3.72 m/uL (3.80-5.40); RDW 12.3 % (11.5-15.5); WBC 6.3 k/uL (3.8-10.6)
[2021-12-24] MEDS: PANTOPRAZOLE 40 MG/10 ML VIAL IVP SCH (10:57)
[2021-12-24] MEDS ORDERED: IV FLUID CONTINUATION 1,000 ML IV ONE (11:39)
[2021-12-24] MEDS ORDERED: PHENYLEPHRINE-0.9% NACL SYG 1,000 MCG/10 ML SYRINGE ONE (11:58)
[2021-12-24] MEDS ORDERED: MIDAZOLAM 2 MG/2 ML VIAL ONE (11:58)
[2021-12-24] MEDS ORDERED: PROPOFOL 10 MG/ML 20 ML VIAL IV ONE (11:58)
[2021-12-24] MEDS ORDERED: SUCCINYLCHOLINE CHLORIDE 100 MG/5 ML SYR IV ONE (11:58)
[2021-12-24] MEDS ORDERED: ALBUTEROL HFA INHALER INHALATION ONE (11:58)
[2021-12-24] MEDS ORDERED: fentaNYL (PF) 50 MCG/ML 2 ML AMP ONE (11:58)
[2021-12-24] MEDS ORDERED: LIDOCAINE 2% INJ 20 MG/ML (2 ML VIAL) ONE (11:58)
--- NOTE | 2021-12-24 12:47 | P.OP ---
Date of Procedure: 12/24/21 Preoperative Diagnosis: Right ureteral stone with obstruction Postoperative Diagnosis: Same Procedure(s) Performed: Cystoscopy, right ureteroscopy with laser lithotripsy, placement of 6 x 24 stent Anesthesia: BELEN Surgeon: Cuauhtemoc Thomson Estimated Blood Loss (ml): 0 Pathology: other (Stone) Condition: stable Disposition: PACU Indications for Procedure: Patient is 66. For several weeks she has had back pain of indeterminate cause. Eventually stone was identified when she came in the emergency room recently. The stone was about 5 mm in the distal ureter. Because of the persistent pain she comes for ureteroscopy laser lithotripsy. Description of Procedure: Patient brought to the operating suite. Given general anesthesia. Placed lithotomy position with sterile prep and drape. Cystoscopy identifies a cystocele. The bladder morillo otherwise unremarkable. Both ureteral orifices are normal. Right ureteral orifice is intubated with an 8-[place] acorn-tipped catheter. The meatus is dilated. I passed the semirigid ureteroscope into the intramural tunnel of the right ureter and identify the stone. With the 375 laser probe the stone was broken into tiny fragments and flushed out of the right ureter. The right Ureter is quite edematous and an inflamed due to the stone therefore a stent will be placed . Through the ureteroscope and 035 wires passed up into the right renal pelvis. I removed the ureteroscope and over the wires passed a 6 x 24 double-J catheter that coils in the right renal pelvis and the bladder. The bladder is drained. The stone fragments are retrieved. The patient is awakened and returned recovery room good condition. She will be returned recovery room upon recovery and discharged home later today.
--- NOTE | 2021-12-24 13:49 | P.DS ---
Providers Date of admission: 12/23/21 02:02 Expected date of discharge: 12/24/21 Attending physician: Jorje Torres Consults: 12/23/21 02:02 Consult Physician Routine Consulting Provider: Jorje Torres Jr Consult Reason/Comments: stone Do you want consulting provider notified?: Yes Primary care physician: Jorje Melissa [facility] Course: Final Diagnoses: Acute right flank pain, moderate right-sided hydronephrosis and hydroureter, high-grade obstruction with obstructing calculus at right ureterovesical junction status post cystoscopy, right ureteroscopy with laser lithotripsy, placement of Stent. Dehydration, mild Possible acute UTI, culture pending, Recent fall, recommend following up with supervisor maintenance outpatient, has not had a recent eye exam in years. Hypertension Hyperlipidemia Obesity Hospital course: This is a pleasant 66-year-old female with past medical history of hyperlipidemia, hypertension, obesity and multiple other medical issues presented to the ER with worsening right flank pain. Patient had seen last week for right flank/back pain with possible stone. CT completed at that time did not report any suspicious renal stones. Reports no prior stones, but positive family history. Repeat computed tomography scan reported moderate right-sided hydronephrosis and hydroureter, perinephric fluid consistent with high-grade obstruction, obstructing calculus at the right ureterovesical junction. Afebrile, normal WBC. BUN 28, creatinine 0.8. UA reporting rare bacteria, elevated WBCs 87, large leukocytes negative nitrates, large blood, culture pending. Reports frequency, denies dysuria or hematuria. Urology consult in place .Also reports incidental recent falls 2. Initial fall in October, side walk with unlevel cement, tripped and fell without syncope, then yesterday [facility], no syncope, no head trauma, landed on her right side. Denies lightheadedness dizziness or focal deficits. Denies syncope, denies chest pain, palpitations or shortness of breath. Has not had an eye exam for many years. Placed on IV fluid hydration, IV antibiotic ceftriaxone. Maintained on IV fluid hydration, IV antibiotics. Pain management, Ultram added to med regimen with pain controlled. Increase ambulation as tolerated with assistance. Evaluated by urology, status post cystoscopy, right ureteroscopy with laser lithotripsy, placement of Double-J Catheter/Stent. Cystoscopy identified a cystocele. Tolerated procedure well. Significant clinical improvement. Patient will be discharged later today pending final DC recommendations and clearance per urology. Patient is also recommended to follow-up for full eye exam outpatient. The impression and plan of care has been dictated as directed. : I performed a history and examination of this patient, discussed the same with the dictator. I agree with the dictator's note ,documented as a scribe. Any additional findings or plans will be noted. Patient Condition at Discharge: Stable Plan - Discharge Summary New Discharge Prescriptions: New Cefuroxime Axetil [Ceftin] 500 mg PO BID 5 Days #10 tab Acetaminophen Tab [Tylenol] 650 mg PO Q6HR PRN tab PRN Reason: Mild Pain Or Fever > 100.5 Continue Bisoprol/Hydrochlorothiazide [Ziac 5-6.25 MG] 1 tab PO DAILY [place]-3 Acid Ethyl Esters [Lovaza] 2 gm PO DAILY Atorvastatin [Lipitor] 20 mg PO DAILY Magnesium 250 mg PO DAILY Niacin 500 mg PO HS FLUoxetine HCL [Sarafem] 60 mg PO DAILY Discharge Medication List Bisoprol/Hydrochlorothiazide [Ziac 5-6.25 MG] 1 tab PO DAILY 11/24/14 [History] [place]-3 Acid Ethyl Esters [Lovaza] 2 gm PO DAILY 11/24/14 [History] Atorvastatin [Lipitor] 20 mg PO DAILY 11/12/21 [History] FLUoxetine HCL [Sarafem] 60 mg PO DAILY 11/12/21 [History] Magnesium 250 mg PO DAILY 12/23/21 [History] Niacin 500 mg PO HS 12/23/21 [History] Acetaminophen Tab [Tylenol] 650 mg PO Q6HR PRN tab 12/24/21 [Rx] Cefuroxime Axetil [Ceftin] 500 mg PO BID 5 Days #10 tab 12/24/21 [Rx] Follow up Appointment(s)/Referral(s): Jorje Torres Jr, DO [Primary Care Provider] - 3 Days Cuauhtemoc Thomson MD [STAFF PHYSICIAN] - 1 Week (Cystoscopy stent removal) Activity/Diet/Wound Care/Special Instructions: Urine culture pending, final results to be faxed to PCP.
[2021-12-24] MEDS: BISOPROLOL 5 MG TAB PO SCH (13:54)
[2021-12-24] MEDS: Omega-3 Acid Ethyl Esters [Lovaza] 1 GM Capsule PO SCH (13:54)
[2021-12-24] MEDS: ATORVASTATIN 20 MG TAB PO SCH (13:54)
[2021-12-24] MEDS: MAGNESIUM OXIDE 400 MG TAB PO SCH (13:54)
[2021-12-24] MEDS: FLUoxetine HCL 20 MG CAP PO SCH (13:54)
[2021-12-24 14:16] VITALS: RESP 16; TEMP 98.3
[2021-12-24 17:03] VITALS: BP 99/64; PULSE 82
--- NOTE | 2021-12-25 15:54 | FL ---
EXAMINATION TYPE: FL guidance operating room DATE OF EXAM: 12/24/2021 HISTORY: Fluoroscopy time 9 seconds of fluoroscopy provided. IMPRESSION: 1. Fluoroscopy time.
== END 2021-12-24 17:39 | disposition home or self-care (01) ==
LOC: EC 22:51 → 5NMEDONC 12-23 02:02 → INTOOBSV 12-23 02:02 → 6NMEDSUR 12-23 05:37 → UNDODISIN 12-24 17:39
PROVIDERS: ADMIT Family Medicine; ATTEND Family Medicine
DX: N13.2 Hydronephrosis with renal and ureteral calculous obstruction (principal); N13.0 Hydronephrosis with ureteropelvic junction obstruction; I10 Essential (primary) hypertension; E86.0 Dehydration; E78.5 Hyperlipidemia, unspecified; E66.9 Obesity, unspecified; Z68.33 Body mass index [BMI] 33.0-33.9, adult; Z87.442 Personal history of urinary calculi; Z79.899 Other long term (current) drug therapy; Z90.49 Acquired absence of other specified parts of digestive tract; Z87.19 Personal history of other diseases of the digestive system; Z91.81 History of falling; Z98.890 Other specified postprocedural states; N81.10 Cystocele, unspecified; R29.6 Repeated falls; W01.0XXA Fall on same level from slipping, tripping and stumbling without subsequent striking against object, initial encounter; Z84.89 Family history of other specified conditions
CPT/HCPCS: 96376; 96361; 96365; 96375; 99285; 36415; 80053; 80048; 82150; 83690; 85025 ×2; 81001; 82365; 87086; 74177; 52356; G0378 ×3; C2625; C1758; C1769; J2250; J2270; J1100; J2405 ×2; J0696 ×3; J3010; J1885; J2370; J0330; J2704; C9113 ×2; Q9967; J2001

== ENCOUNTER → 2022-05-28 | Outpatient (CLI) | payer MEDICARE ==
--- NOTE | 2022-05-28 14:55 | MM ---
Reason for Exam: Follow-up at short interval from prior study. Last mammogram was performed 1 year(s) and 1 month(s) ago. Patient History: Menarche at age 16. First Full-Term at age 23. Left ovary removed at age 48. Right ovary removed at age 48. Hysterectomy at age 48. Postmenopausal. Patient has history of breast feeding. Progesterone for 1 year, 6 months. Hormonal Contraceptives for 6 months. Benign Excisional Biopsy on the left side. Risk Values: Isela 5 year model risk: 1.6%. NCI Lifetime model risk: 5.8%. Prior Study Comparison: 08/09/2018 Bilateral Screening Mammogram, [facility]. 04/25/2021 Bilateral Screening Mammogram, [facility]. 05/14/2021 Right Diagnostic Mammogram, [facility]. 10/30/2021 Right Diagnostic Mammogram, [facility]. Tissue Density: The breast tissue is heterogeneously dense. This may lower the sensitivity of mammography. Findings: Analyzed By CAD. Focal asymmetry within the right breast remains present in the outer mid aspect. Suspicious distortion on tomographic images is not evident. This is stable in appearance from the most recent 10/30/2021 exam but does have a slow interval change from prior comparisons. No suspicious groups of microcalcifications, spiculated or lobular masses, architectural distortion or other secondary signs of malignancy are mammographically apparent. Overall Assessment: Benign, BI-RAD 2 Management: Screening Mammogram of both breasts in 6 months. A negative mammogram report should not preclude additional follow up of suspicious palpable abnormalities. Patient should continue monthly self breast exam. A clinical breast exam by your physician is recommended on an annual basis and results should be correlated with mammographic findings. Electronically signed and approved by: Fadi Dover D.O. Radiologis
--- NOTE | 2022-05-28 16:04 | BD ---
EXAMINATION TYPE: Axial Bone Density DATE OF EXAM: 05/28/2022 COMPARISON: NONE CLINICAL HISTORY: 67 year old Female. ICD-10 CODE: R92.8 ABN MAMMOGRAM,Z78.0 POSTMENOPAUSAL Height: 59 Weight: 157.6 FRAX RISK QUESTIONS: Alcohol (3 or more units per day): no Family History (Parent hip fracture): no Glucocorticoids (More than 3mos): no (Ex: prednisone, prednisolone, methylprednisolone, dexamethasone, and hydrocortisone). History of Fracture in Adulthood: no Secondary Osteoporosis: 1. Type 1 Diabetes: no 2. Hyperthyroidism: no 3. Menopause before 45: no 4. Malnutrition: no 5. Chronic liver disease: no Rheumatoid Arthritis: no Current Tobacco Use: no RISK FACTORS HISTORY OF: Surgery to Spine/Hip(right/left)/Wrist (right/left): no Family History of Osteoporosis: no Active: no Diet low in dairy products/other sources of calcium: no Postmenopausal woman: yes Lost more than 2 inches in height since high school: no MEDICATIONS: Additional History: EXAM MEASUREMENTS: Bone mineral densitometry was performed using the [employer] System. Bone mineral density as measured about the Lumbar spine is: ----- L1-L4(G/cm2): 1.117 T Score Values are as follows: ----- L1: -1.8 ----- L2: -0.2 ----- L3: 0.4 ----- L4: -0.7 ----- L1-L4: -0.5 Bone mineral density : baseline Bone mineral density about the R hip (g/cm2): 0.719 Bone mineral density about the L hip (g/cm2): 0.725 T Score values are as follows: -----R Neck: -2.3 -----L Neck: -2.3 -----R Total: -1.8 -----L Total: -1.3 Bone mineral density : baseline FRAX%s: The graph provided illustrates a 11.9% chance for a major osteoporotic fx and a 2.2% chance f or the hips probability for fx in 10 years time. IMPRESSION: Osteopenia (T Score between -2.5 and -1). There is slightly increased risk of fracture and the patient may be considered for treatment. Re-Screen 2-5 years. NOTE: T-SCORE=SD OF THE YOUNG ADULT MEAN.
== END | disposition home or self-care (01) ==
LOC: RADMAMWWP 14:20
PROVIDERS: ATTEND Family Medicine
DX: Z13.820 Encounter for screening for osteoporosis (principal); M85.89 Other specified disorders of bone density and structure, multiple sites; R92.8 Other abnormal and inconclusive findings on diagnostic imaging of breast; Z78.0 Asymptomatic menopausal state; Z90.721 Acquired absence of ovaries, unilateral
CPT/HCPCS: 77080; 77066; G0279; 77062

== ENCOUNTER 2022-08-04 08:57 | Day surgery (SDC) | payer MEDICARE ==
[~2022-08-04 08:57] MED LIST: LACTATED RINGERS 1,000 ML IV SCH; LIDOCAINE 1% (10MG/ML) FOR IV START INTRADERMA PRN
[2022-08-04 09:19] VITALS: TEMP 97
[2022-08-04] MEDS ORDERED: PROPOFOL 10 MG/ML 20 ML VIAL IV ONE (09:46)
--- NOTE | 2022-08-04 09:48 | P.GSHP ---
History of Present Illness H&P Date: 08/04/22 Chief Complaint: colon cancer screening 67-year-old female here today for colonoscopy. Last colonoscopy about 10 years ago. Family history of precancerous colon lesion in a sibling that required colon resection. No bowel complaints. No prior polyps. Past Medical History Past Medical History: Hyperlipidemia, Hypertension Additional Past Medical History / Comment(s): kidney stones december 2021, History of Any Multi-Drug Resistant Organisms: None Reported Past Surgical History: Cholecystectomy, Hysterectomy Additional Past Surgical History / Comment(s): kidney stone removal ,colonoscopy Past Anesthesia/Blood Transfusion Reactions: No Reported Reaction Smoking Status: Never smoker Medications and Allergies Home Medications Medication Instructions Recorded Confirmed Type Bisoprolol/Hydrochlorothiazide 1 tab PO DAILY 11/24/14 08/04/22 History [Ziac 5-6.25 MG] [place]-3 Acid Ethyl Esters [Lovaza] 2 gm PO DAILY 11/24/14 08/04/22 History Atorvastatin [Lipitor] 20 mg PO DAILY 11/12/21 08/04/22 History FLUoxetine HCL [Sarafem] 60 mg PO DAILY 11/12/21 08/04/22 History Magnesium 250 mg PO DAILY 12/23/21 08/04/22 History Niacin 500 mg PO HS 12/23/21 08/04/22 History Allergies Allergy/AdvReac Type Severity Reaction Status Date / Time No Known Allergies Allergy Verified 08/04/22 09:14 Surgical - Exam Vital Signs Temp Pulse Resp BP Pulse Ox 97.0 F L 79 18 116/61 96 08/04/22 09:13 08/04/22 09:13 08/04/22 09:13 08/04/22 09:13 08/04/22 09:13 Physical exam: General: Well-developed, well-nourished HEENT: Normocephalic, sclerae nonicteric Abdomen: Nontender, nondistended Extremities: No edema Neuro: Alert and oriented Assessment and Plan (1) Colon cancer screening Narrative/Plan: Will proceed with colonoscopy at this time. Current Visit: Yes Status: Acute Code(s): Z12.11 - ENCOUNTER FOR SCREENING FOR MALIGNANT NEOPLASM OF COLON SNOMED Code(s): 911139805
--- NOTE | 2022-08-04 10:01 | P.PCN ---
Date of Procedure: 08/04/22 Procedure(s) Performed: PREOPERATIVE DIAGNOSIS: Colon cancer screening POSTOPERATIVE DIAGNOSIS: Normal exam PROCEDURE: Colonoscopy ANESTHESIA: MAC SURGEON: Juancarlos Escamilla M.D. SPECIMENS: None ENDOSCOPIC PROCEDURE: The patient was placed on the endoscopy table in the left decubitus position. The Olympus colonoscope was inserted into the anus and passed under direct visualization to the base of the cecum. The appendiceal orifice was visualized. From that point the scope was slowly withdrawn inspecti ng all surfaces carefully. There were no neoplastic inflammatory or polypoid lesions throughout the cecum, ascending, transverse, descending, sigmoid and rectum. There was no visible diverticulosis noted. Digital rectal examination was normal. The patient was taken to the recovery room in stable condition per anesthesia guidelines. RECOMMENDATIONS: Resume diet. Consider repeat colonoscopy 5 years given the patient's family history of colon neoplasia and her brother.
[2022-08-04 10:40] VITALS: BP 108/69; PULSE 66; RESP 16
== END 2022-08-04 10:42 | disposition home or self-care (01) ==
LOC: ORWHC2ENDO 08:57
PROVIDERS: ATTEND Surgery
DX: Z12.11 Encounter for screening for malignant neoplasm of colon (principal); Z80.0 Family history of malignant neoplasm of digestive organs; I10 Essential (primary) hypertension; E78.5 Hyperlipidemia, unspecified; F32.A Depression, unspecified; Z87.442 Personal history of urinary calculi; Z90.49 Acquired absence of other specified parts of digestive tract; Z98.890 Other specified postprocedural states; Z79.2 Long term (current) use of antibiotics; Z79.02 Long term (current) use of antithrombotics/antiplatelets; Z79.51 Long term (current) use of inhaled steroids; Z79.899 Other long term (current) drug therapy
CPT/HCPCS: 45378; G0121; J2704

== ENCOUNTER → 2022-08-13 | Outpatient (CLI) | payer MEDICARE ==
--- NOTE | 2022-08-13 10:57 | XR ---
EXAMINATION TYPE: XR KUB DATE OF EXAM: 08/13/2022 CLINICAL HISTORY: Left flank pain times several months TECHNIQUE: Single supine KUB image of the abdomen is obtained. COMPARISON: CT 12/23/2021 FINDINGS: Moderate gas and stool throughout the colon. No dilated small bowel loops. No visceromegaly or pneumoperitoneum. No abnormal calcifications aside from pelvic vascular calcifications. Degenerat kadi changes of the hips, pubic symphysis, sclerotic changes at the right sacroiliac joint, and modera te to severe hypertrophic facet changes particularly at L5-S1. No acute osseous abnormality. IMPRESSION: No abnormal calcifications. Moderate stool burden throughout colon.
== END | disposition home or self-care (01) ==
LOC: RADXRMAIN 09:12
PROVIDERS: ATTEND Urology
DX: N20.0 Calculus of kidney (principal); R19.5 Other fecal abnormalities
CPT/HCPCS: 74018

== ENCOUNTER 2023-06-23 12:33 | Day surgery (SDC) | payer MEDICARE ==
[2023-06-23] MEDS ORDERED: LACTATED RINGERS 1,000 ML IV ONE (13:12)
[2023-06-23 13:29] VITALS: TEMP 96.6
[2023-06-23] MEDS ORDERED: LIDOCAINE 1% INJ 10MG/ML (20 ML MDV) ONE (13:37)
[2023-06-23] MEDS ORDERED: PROPOFOL 10 MG/ML 20 ML VIAL IV ONE (13:37)
--- NOTE | 2023-06-23 13:54 | P.PCN ---
Date of Procedure: 06/23/23 Procedure(s) Performed: BRIEF HISTORY: Patient is a 68-year-old, pleasant, white female scheduled for an upper endoscopy as part of evaluation of intermittent episodes of nausea vomiting and abdominal pain for the last 5 months duration. She has the symptoms once or twice a week and lasts for a few hours and resolve.. PROCEDURE PERFORMED: Esophagogastroduodenoscopy with biopsy. PREOPERATIVE DIAGNOSIS: Intermittent episodes of epigastric pain associated with nausea vomiting for 5 months duration. IV sedation per anesthesia. PROCEDURE: After informed consent was obtained, the patient was brought into the endoscopy unit. IV sedation was administered by Anesthesia under continuous monitoring. Initially the Olympus GIF-140 video endoscope was inserted into the mouth. Esophagus intubated without any difficulty. It was gradually advanced into the stomach and duodenum and carefully examined. The bulb and the second part of the duodenum appeared normal. The scope at this time was withdrawn to the stomach, adequately insufflated with air, and upon careful examination, mucosa of the antrum, had mild gastritis and biopsies were done from this area. Mucosa of the body, cardia and the fundus appeared normal. The scope was then withdrawn into the esophagus. Small hiatal hernia noted. The GE junction was located at 37 cm from the incisors. There was a short segment of Sal's appearing mucosa extending 3-4 mm proximal to the GE junction was biopsied. Rest of esophagus appeared normal and the patient tolerated the procedure well. IMPRESSION: 1. Small hiatal hernia and short segment Sal's esophagus. 2. Mlld antral gastritis. RECOMMENDATIONS: The findings of this examination were discussed with the patient as well as her family. She was advised to follow with the biopsy results. She will be given a a trial of Prilosec 20 mg daily to be taken half hour before breakfast and follow antireflux measures. Zofran as needed.. In office in 3-4 weeks.
[2023-06-23 14:17] VITALS: BP 120/82; PULSE 72; RESP 16
== END 2023-06-23 14:30 | disposition home or self-care (01) ==
LOC: ORWHC2ENDO 12:33
PROVIDERS: ATTEND Internal Medicine Gastroenterology
DX: K29.50 Unspecified chronic gastritis without bleeding (principal); K44.9 Diaphragmatic hernia without obstruction or gangrene; K22.70 Barrett's esophagus without dysplasia; I10 Essential (primary) hypertension; E78.5 Hyperlipidemia, unspecified; F17.200 Nicotine dependence, unspecified, uncomplicated; Z95.5 Presence of coronary angioplasty implant and graft; Z79.899 Other long term (current) drug therapy
CPT/HCPCS: 88305; 88313; 43239; J2001; J2704

== ENCOUNTER → 2023-09-03 | Outpatient (CLI) | payer MEDICARE ==
--- NOTE | 2023-09-03 19:07 | MM ---
Reason for Exam: Screening (asymptomatic). Last mammogram was performed 1 year(s) and 3 month(s) ago. Patient History: Menarche at age 16. First Full-Term at age 23. Left ovary removed at age 48. Right ovary removed at age 48. Hysterectomy at age 48. Postmenopausal. Patient has history of breast feeding. Progesterone for 1 year, 6 months. Hormonal Contraceptives for 6 months. Benign Excisional Biopsy on the left side. Risk Values: Isela 5 year model risk: 1.6%. NCI Lifetime model risk: 5.6%. Prior Study Comparison: 05/14/2021 Right Diagnostic Mammogram, [facility]. 10/30/2021 Right Diagnostic Mammogram, [facility]. 05/28/2022 Bilateral MG 3D diag mammo w/cad DORIE, [facility]. Tissue Density: There are scattered fibroglandular densities. Findings: Analyzed By CAD. Unchanged global asymmetry central right cc view. There is no suspicious group of microcalcifications or new suspicious mass in either breast. Overall Assessment: Benign, BI-RAD 2 Management: Screening Mammogram of both breasts in 1 year. . Patient should continue monthly self-breast exams. A clinical breast exam by your physician is recommended on an annual basis. This exam should not preclude additional follow-up of suspicious palpable abnormalities. Note on Isela scores and lifetime risk: 1. A Isela score greater than 3% is considered moderate risk. If this is the case, consider specialist referral to assess eligibility for a risk reducing agent. 2. If overall lifetime risk for the development of breast cancer is 20% or higher, the patient may qualify for future screening with alternating mammogram and breast MRI. Electronically signed and approved by: Fay Montenegro M.D. Radiologist
== END | disposition home or self-care (01) ==
LOC: RADMAMWWP 07:40
PROVIDERS: ATTEND Family Medicine
DX: Z12.31 Encounter for screening mammogram for malignant neoplasm of breast (principal); Z78.0 Asymptomatic menopausal state
CPT/HCPCS: 77063; 77067

== ENCOUNTER 2024-08-22 00:05 | Emergency (ER) | payer MEDICARE ==
[2024-08-22 00:13] VITALS: TEMP 98.6
[2024-08-22] MEDS: KETOROLAC 15 MG/ML 1 ML VIAL IVP STA (00:46)
[2024-08-22] MEDS: ONDANSETRON 4 MG/2 ML VIAL IVP STA (00:50)
[2024-08-22 00:55] LABS: Basophils # (A) 0.1 k/uL (0-0.2); Basophils % (A) 1 %; Eosinophils # (A) 0.3 k/uL (0-0.7); Eosinophils % (A) 4 %; HCT 38.4 % (34.0-46.0); HGB 12.8 gm/dL (11.4-16.0); Lymphocytes # (A) 3.1 k/uL (1.0-4.8); Lymphocytes % (A) 39 %; MCH 30.3 pg (25.0-35.0); MCHC 33.4 g/dL (31.0-37.0); MCV 90.7 fL (80.0-100.0); Mean Platelet Volume 6.6; Monocytes # (A) 0.4 k/uL (0-1.0); Monocytes % (A) 6 %; Neutrophils # (A) 3.8 k/uL (1.3-7.7); Neutrophils % (A) 48 %; Platelet Count 267 k/uL (150-450); RBC 4.23 m/uL (3.80-5.40); RDW 12.6 % (11.5-15.5)
[2024-08-22 01:07] LABS: ALT 21 U/L (4-34); AST 23 U/L (14-36); African American GFR (CKD) >90 (>60 ml/min/1.73 sqM); Albumin 3.8 g/dL (3.5-5.0); Alkaline Phosphatase 73 U/L (38-126); Anion Gap 7 mmol/L; Blood Urea Nitrogen 29 mg/dL (7-17); Calcium 9.3 mg/dL (8.4-10.2); Carbon Dioxide 29 mmol/L (22-30); Chloride 100 mmol/L (98-107); Glucose 146 mg/dL (74-99); Non-African American GFR(CKD) 79 (>60 ml/min/1.73 sqM); Potassium 3.6 mmol/L (3.5-5.1); Sodium 136 mmol/L (137-145); Total Bilirubin 0.3 mg/dL (0.2-1.3); Total Protein 6.3 g/dL (6.3-8.2)
--- NOTE | 2024-08-22 01:38 | ED ---
Back Pain HPI - General Chief Complaint: Back Pain/Injury Stated Complaint: abd pain back pain Time Seen by Provider: 08/22/24 00:26 Source: patient Limitations: no limitations - History of Present Illness Initial Comments: 69-year-old female presenting with chief complaint of right-sided flank pain. This pain started about 2 hours ago. Very sharp in nature, pain waxes and wan es. Some nausea no vomiting. She admits to urinary urgency and frequency. No dysuria or hematuria. She does have history of kidney stones. States that the pain does wrap around to the front of her abdomen as well. No injury or trauma. No fevers or chills. - Related Data Home Medications Medication Instructions Recorded Confirmed Bisoprolol/Hydrochlorothiazide 1 tab PO DAILY 11/24/14 06/23/23 [Ziac 5-6.25 MG] [place]-3 Acid Ethyl Esters [Lovaza] 2 gm PO DAILY 11/24/14 06/23/23 Atorvastatin [Lipitor] 20 mg PO DAILY 11/12/21 06/23/23 FLUoxetine HCL [Sarafem] 60 mg PO DAILY 11/12/21 06/23/23 Niacin 500 mg PO HS 12/23/21 06/23/23 Ondansetron [Zofran] 4 mg PO Q8HR PRN 06/23/23 06/23/23 Previous Rx's Medication Instructions Recorded HYDROcodone/APAP 5-325MG [[place] 1 tab PO Q6HR PRN 3 Days #12 tab 08/22/24 5-325] Ondansetron Odt [Zofran Odt] 4 mg PO Q8HR PRN #20 tab 08/22/24 Tamsulosin [Flomax] 0.4 mg PO DAILY #10 cap 08/22/24 Allergies Allergy/AdvReac Type Severity Reaction Status Date / Time No Known Allergies Allergy Verified 08/22/24 00:13 Review of Systems ROS Statement: Those systems with pertinent positive or pertinent negative responses have been documented in the HPI. ROS Other: All systems not noted in ROS Statement are negative. Past Medical History Past Medical History: Hyperlipidemia Additional Past Medical History / Comment(s): kidney stones History of Any Multi-Drug Resistant Organisms: None Reported Past Surgical History: Cholecystectomy, Hysterectomy Additional Past Surgical History / Comment(s): kidney stone removal ,colonoscopy Past Anesthesia/Blood Transfusion Reactions: No Reported Reaction Past Psychological History: No Psychological Hx Reported Smoking Status: Never smoker Past Alcohol Use History: None Reported Past Drug Use History: None Reported General Exam Limitations: no limitations General appearance: alert, in no apparent distress Head exam: Present: atraumatic, normocephalic, normal inspection Eye exam: Present: normal appearance, EOMI Neck exam: Present: normal inspection. Absent: meningismus Respiratory exam: Present: normal lung sounds bilaterally. Absent: respiratory distress, wheezes, rales, rhonchi, stridor Cardiovascular Exam: Present: regular rate, normal rhythm, normal heart sounds. Absent: systolic murmur, diastolic murmur, rubs, gallop, clicks GI/Abdominal exam: Present: soft. Absent: distended, tenderness, guarding, rebound, rigid Neurological exam: Present: alert, oriented X3 Psychiatric exam: Present: normal affect, normal mood Skin exam: Present: warm, dry Course Vital Signs 08/22/24 00:10 Temperature 98.6 F Pulse Rate 80 Respiratory 20 Rate Blood Pressure 146/82 O2 Sat by Pulse 96 Oximetry Medical Decision Making - Medical Decision Making Was pt. sent in by a medical professional or institution (, PA, NETWORK AND THREAT SUPPORT SPECIALIST, urgent care, hospital, or senior care...) When possible be specific @ -No Did you speak to anyone other than the patient for history (EMS, parent, family, police, friend...)? What history was obtained from this source @ -No Did you review nursing and triage notes (agree or disagree)? Why? @ -I reviewed and agree with nursing and triage notes Were old charts reviewed (outside hosp., previous admission, EMS record, old EKG, old radiological studies, urgent care reports/EKG's, senior care records)? Report findings @ -No old charts were reviewed Differential Diagnosis (chest pain, altered mental status, abdominal pain women, abdominal pain men, vaginal bleeding, weakness, fever, dyspnea, syncope, headache, dizziness, GI bleed, back pain, seizure, CVA, palpatations, mental health, musculoskeletal)? @ - [facility] Differential Back Pain: Strain, zoster, cauda equina syndrome, epidural abscess, vertebral osteo myelitis, discitis, fracture, subluxation, disc herniation, DJD, spinal stenosis, dissection, AAA, pancreatitis, peptic ulcer disease, pyelonephritis, kidney stone this is not meant to be an all-inclusive list. EKG interpreted by me (3pts min.). @ -As above X-rays interpreted by me (1pt min.). @ -None done CT interpreted by me (1pt min.). @ -CT shows 5 mm right-sided obstructing ureteral stone U/S interpreted by me (1pt. min.). @ -None done What testing was considered but not performed or refused? (CT, X-rays, U/S, labs)? Why? @ -None What meds were considered but not given or refused? Why? @ -None Did you discuss the management of the patient with other professionals (professionals i.e. Dr., PA, NETWORK AND THREAT SUPPORT SPECIALIST, lab, RT, psych nurse, health and social care teacher, forestry pilot, teacher, interface control officer, case advocate)? Give summary @ -No Was smoking cessation discussed for >3mins.? @ -No Was critical care preformed (if so, how long)? @ -No Were there social determinants of health that impacted care today? How? (Homelessness, low income, unemployed, alcoholism, drug addiction, transportation, low edu. Level, literacy, decrease access to med. care, care home, rehab)? @ -No Was there de-escalation of care discussed even if they declined (Discuss DNR or withdrawal of care, Hospice)? DNR status @ -No What co-morbidities impacted this encounter? (DM, HTN, Smoking, COPD, CAD, Cancer, CVA, ARF, Chemo, Hep., AIDS, mental health diagnosis, sleep apnea, morbid obesity)? @ -None Was patient admitted / discharged? Hospital course, mention meds given and route, prescriptions, significant lab abnormalities, going to OR and other pertinent info. @ -69-year-old female presenting with chief complaint of right-sided flank pain started 2 hours ago. History of kidney stones. History and physical examination are conducted. No leukocytosis or anemia. GFR consistent with the patient's baseline. Urine shows large blood with [address] is positive for 5 mm obstructing right ureteral stone. Patient is educated on today's findings. She is provided with pain and nausea medication for home. Instructed to fo llow-up with her urologist. Follow-up with PCP. Report back to ER with any new or worsening symptoms. Discussed return parameters and answered all questions. Patient conveyed verbal understanding and agreed to the plan. I discussed this case in detail with my attending Dr. Grover Undiagnosed new problem with uncertain prognosis? @ -No Drug Therapy requiring intensive monitoring for toxicity (Heparin, Nitro, Insulin, Cardizem)? @ -No Were any procedures done? @ -No Diagnosis/symptom? @ -Kidney stone Acute, or Chronic, or Acute on Chronic? @ -Acute Uncomplicated (without systemic symptoms) or Complicated (systemic symptoms)? @ -Uncomplicated Side effects of treatment? @ -No Exacerbation, Progression, or Severe Exacerbation? @ -No Poses a threat to life or bodily function? How? (Chest pain, [place], [place], pneumonia, PE, COPD, DKA, ARF, appy, cholecystitis, CVA, Diverticulitis, Homicidal, Suicidal, threat to staff... and all critical care pts) @ -Unlikely - Lab Data Result diagrams: 08/22/24 00:34 08/22/24 00:34 Lab Results 08/22/24 08/22/24 08/22/24 Range/Units 00:34 00:34 01:25 WBC 8.0 (3.8-10.6) k/uL RBC 4.23 (3.80-5.40) m/uL Hgb 12.8 (11.4-16.0) gm/dL Hct 38.4 (34.0-46.0) % MCV 90.7 (80.0-100.0) fL MCH 30.3 (25.0-35.0) pg MCHC 33.4 (31.0-37.0) g/dL RDW 12.6 (11.5-15.5) % Plt Count 267 (150-450) k/uL MPV 6.6 Neutrophils % 48 % Lymphocytes % 39 % Monocytes % 6 % Eosinophils % 4 % Basophils % 1 % Neutrophils # 3.8 (1.3-7.7) k/uL Lymphocytes # 3.1 (1.0-4.8) k/uL Monocytes # 0.4 (0-1.0) k/uL Eosinophils # 0.3 (0-0.7) k/uL Basophils # 0.1 (0-0.2) k/uL Sodium 136 L (137-145) mmol/L Potassium 3.6 (3.5-5.1) mmol/L Chloride 100 (98-107) mmol/L Carbon Dioxide 29 (22-30) mmol/L Anion Gap 7 mmol/L BUN 29 H (7-17) mg/dL Creatinine 0.78 (0.52-1.04) mg/dL Est GFR (CKD-EPI)AfAm >90 (>60 ml/min/1.73 sqM) Est GFR (CKD-EPI)NonAf 79 (>60 ml/min/1.73 sqM) Glucose 146 H (74-99) mg/dL Calcium 9.3 (8.4-10.2) mg/dL Total Bilirubin 0.3 (0.2-1.3) mg/dL AST 23 (14-36) U/L ALT 21 (4-34) U/L Alkaline Phosphatase 73 (38-126) U/L Total Protein 6.3 (6.3-8.2) g/dL Albumin 3.8 (3.5-5.0) g/dL Urine Color Colorless Urine Appearance Clear (Clear) Urine pH 5.0 (5.0-8.0) Ur Specific [place] 1.020 (1.001-1.035) Urine Protein Negative (Negative) Urine Glucose (UA) Negative (Negative) Urine Ketones Negative (Negative) Urine Blood Large H (Negative) Urine Nitrite Negative (Negative) Urine Bilirubin Negative (Negative) Urine Urobilinogen <2.0 (<2.0) mg/dL Ur Leukocyte Esterase Small H (Negative) Urine RBC 23 H (0-5) /hpf Urine WBC 5 (0-5) /hpf Ur Squamous Epith Cells <1 (0-4) /hpf Urine Mucus Rare H (None) /hpf Disposition Clinical Impression: Right ureteral stone Disposition: HOME SELF-CARE Condition: Good Instructions (If sedation given, give patient instructions): Kidney Stones (ED) Additional Instructions: Follow-up with PCP and neurology. Report back to ER with any new or worsening symptoms. Prescriptions: Tamsulosin [Flomax] 0.4 mg PO DAILY #10 cap HYDROcodone/APAP 5-325MG [[place] 5-325] 1 tab PO Q6HR PRN 3 Days #12 tab PRN Reason: Pain Ondansetron Odt [Zofran Odt] 4 mg PO Q8HR PRN #20 tab PRN Reason: Nausea Is patient prescribed a controlled substance at d/c from ED?: Yes When asked, does pt state using other controlled substances?: No If prescribed controlled substance>3 days was MAPS reviewed?: Prescribed <3 Days If opioid is for acute pain is fill amount 7 days or less?: Yes Referrals: Jorje Torres Jr, DO [Primary Care Provider] - 1-2 days Cuauhtemoc Thomson MD [STAFF PHYSICIAN] - 1-2 days Time of Disposition: 04:19
[2024-08-22 02:05] LABS: Appearance,Urine Clear (Clear); Bilirubin,Urine Negative (Negative); Blood,Urine Large (Negative); Color,Urine Colorless; Glucose,Urine (UA) Negative (Negative); Ketones,Urine Negative (Negative); Leukocyte Esterase,Urine Small (Negative); Mucus,Urine Rare /hpf; Nitrite,Urine Negative (Negative); Protein,Urine Negative (Negative); RBC,Urine 23 /hpf (0-5); Squamous Epithelial Cell,Urine <1 /hpf (0-4); Urobilinogen,Urine <2.0 mg/dL (<2.0); WBC,Urine 5 /hpf (0-5)
--- NOTE | 2024-08-22 03:49 | CT ---
EXAM: CT Abdomen and Pelvis Without Intravenous Contrast CLINICAL HISTORY: ITS.REASON CT Reason: Right flank pain TECHNIQUE: Axial computed tomography images of the abdomen and pelvis without intravenous contrast. CTDI is 10.2 mGy and DLP is 597.9 mGy-cm. This CT exam was performed using one or more of the following dose reduction techniques: automated exposure control, adjustment of the mA and/or kV according to patient size, and/or use of iterative reconstruction technique. COMPARISON: No relevant prior studies available. FINDINGS: Limitations: Limited evaluation in the absence of contrast. Lung bases: Mild peripheral interstitial changes in the lungs. No consolidation. Heart: Cardiomegaly. ABDOMEN: Liver: Unremarkable. Gallbladder and bile ducts: Cholecystectomy changes. No ductal dilation. Pancreas: Unremarkable. No ductal dilation. Spleen: Unremarkable. No splenomegaly. Adrenals: Unremarkable. No mass. Kidneys and ureters: Obstructive 5 x 5 x 4 mm calculus within the right distal ureter (visualized on job honer imaging) with upstream mild right renal hydronephrosis with perinephric and periureteral stranding. Stomach and bowel: No evidence of bowel obstruction. No mucosal thickening. PELVIS: Appendix: No findings to suggest acute appendicitis. Bladder: Unremarkable. No stones. Reproductive: Hysterectomy changes. ABDOMEN and PELVIS: Intraperitoneal space: Unremarkable. No free air. No significant fluid collection. Bones/joints: Degenerative changes in the spine. No acute fracture. No dislocation. Soft tissues: Umbilical hernia containing fat. Vasculature: Atherosclerotic disease. No abdominal aortic aneurysm. Lymph nodes: Unremarkable. No enlarged lymph nodes. IMPRESSION: 1. Obstructive 5 x 5 x 4 mm calculus within the right distal ureter (visualized on job [employer]er imaging) with upstream mild right renal hydronephrosis with perinephric and periureteral stranding. 2. No evidence of bowel obstruction. 3. No other acute findings. 4. Incidental findings as described. <MYCVCSECTION> Communications: 08/22/24 04:01 Verify Receipt Verified receipt with Clerk Glez for RIVERA Urbina on 08/22 04:00 (-05:00)
[2024-08-22] MEDS: TAMSULOSIN 0.4 MG CAP.ER.24H PO STA (04:31)
[2024-08-22] MEDS: MORPHINE SULFATE 4 MG/ML SYRINGE IVP STA (04:32)
[2024-08-22 04:39] VITALS: BP 133/80; PULSE 69; RESP 17
== END 2024-08-22 04:49 | disposition home or self-care (01) ==
LOC: EC 00:05
DX: N13.2 Hydronephrosis with renal and ureteral calculous obstruction (principal)
CPT/HCPCS: 36415; 80053; 85025; 81001; 74176; 99284; 96374; 96375 ×2; J2270; J2405; J1885

== ENCOUNTER 2024-11-15 12:27 | Emergency (ER) | payer MEDICARE ==
[2024-11-15] MEDS: SODIUM CHLORIDE 0.9% 1,000 ML IV ONE ×2 (13:22→16:11)
[2024-11-15] MEDS: ONDANSETRON 4 MG/2 ML VIAL IVP STA (13:23)
[2024-11-15] MEDS: HYDROmorphone 1 MG/ML 1 ML SYRINGE IVP STA (13:26)
[2024-11-15] MEDS: PANTOPRAZOLE 40 MG/10 ML VIAL IVP STA (13:28)
[2024-11-15 13:38] LABS: Basophils # (A) 0.06 10*3/uL (0.00-0.10); Basophils % (A) 0.8 %; Eosinophils # (A) 0.22 10*3/uL (0.04-0.35); Eosinophils % (A) 3.1 %; HCT 40.1 % (37.2-46.3); HGB 13.6 g/dL (12.0-15.0); Lymphocytes # (A) 1.67 10*3/uL (0.90-5.00); Lymphocytes % (A) 23.6 %; MCH 30.5 pg (27.0-32.0); MCHC 33.9 g/dL (32.0-37.0); MCV 89.9 fL (80.0-97.0); Mean Platelet Volume 8.7 fL (9.5-12.2); Monocytes # (A) 0.94 10*3/uL (0.20-1.00); Monocytes % (A) 13.3 %; Neutrophils # (A) 4.17 10*3/uL (1.80-7.70); Neutrophils % (A) 58.8 %; Platelet Count 328 10*3/uL (140-440); RBC 4.46 10*6/uL (4.10-5.20); RDW 13.1 % (11.5-14.5); WBC 7.09 10*3/uL (4.50-10.00)
[2024-11-15 13:42] LABS: ALT 21 U/L (4-34); AST 23 U/L (14-36); African American GFR (CKD) >90 (>60 ml/min/1.73 sqM); Alkaline Phosphatase 90 U/L (38-126); Amylase 86 U/L (30-110); Anion Gap 10 mmol/L; Blood Urea Nitrogen 17 mg/dL (7-17); Calcium 9.5 mg/dL (8.4-10.2); Carbon Dioxide 25 mmol/L (22-30); Chloride 104 mmol/L (98-107); Glucose 97 mg/dL (74-99); Lipase 179 U/L (23-300); Non-African American GFR(CKD) 80 (>60 ml/min/1.73 sqM); Potassium 4.1 mmol/L (3.5-5.1); Sodium 139 mmol/L (137-145); Total Bilirubin 0.7 mg/dL (0.2-1.3); Total Protein 6.6 g/dL (6.3-8.2)
[2024-11-15 13:51] LABS: INR 0.9 (<1.2); Prothrombin Time 10.1 sec (10.0-12.5)
--- NOTE | 2024-11-15 15:50 | CT ---
EXAMINATION TYPE: CT brain malina taylor con DATE OF EXAM: 11/15/2024 COMPARISON: None CLINICAL INDICATION: Female, 69 years old with history of muscle tremors/involuntary limb movements r ight si; PHH, fell 2 months ago TECHNIQUE: CT scan of the head and cervical spine are performed without contrast. CT DLP: 1484.[address] CTDI: mGy Automated exposure control for dose reduction was used. Findings: Head CT: Ventricles, basal cisterns and sulci over convexities within normal limits for patient's age and ther e is no mass, mass effect or shift of midline structures. No abnormal density is seen throughout the brain parenchyma and there is no acute intra or extra-axia l hemorrhage. Posterior fossa including the brainstem, fourth ventricle and cerebellar pontine angles are grossly n ormal. The intraorbital contents appear normal and symmetric. Visualized paranasal sinuses are well aerated. CT cervical spine: Craniovertebral junction relationships and prevertebral soft tissues are normal. The cervical vertebral segments are normal in height and alignment and there is no fracture subluxati on. There is mild disc space narrowing and spondylosis at the C5-6 and C6-7 levels indicating mild degene rative disc disease. There is moderate degeneration of the uncovertebral joints at the C6-7 level. The bony cervical canal is widely patent and there is no significant bony encroachment of the neural foramina. The paraspinal soft tissues unremarkable. IMPRESSION: 1. Head CT: No acute bleed or mass effect. Mild age appropriate senescent changes. 2. CT cervical spine: No acute trauma. Mild degenerative disc disease and arthritis in the lower cerv ical spine. [facility], , 11/15/2024 3:48 PM
--- NOTE | 2024-11-15 15:54 | CT ---
EXAMINATION TYPE: CT lumbar spine wo con DATE OF EXAM: 11/15/2024 3:39 PM COMPARISON: None CLINICAL INDICATION: Female, 69 years old with history of muscle tremors/involuntary limb movements r ight si; PHH, back pain TECHNIQUE: Unenhanced CT of the lumbar spine was performed. Bone and soft tissue window settings are submitted as well as coronal and sagittal reconstructions. CT DLP: combined DLP 2569.[address] CTDI: mGy Automated exposure control for dose reduction was used. FINDINGS: The lumbar vertebral segments are normal in height and alignment and there is no fracture or subluxat ion. There is mild spondylosis indicating mild degenerative disc disease but the disc spaces are well pres erved in height. There are no large disc herniations. There is no spinal stenosis. There is mild facet arthropathy at the L2-3, L3-4 and L4-5 levels and severe facet arthropathy at the L5-S1 level. The visualized sacrum and SI joints are normal. IMPRESSION: 1. No lumbar spine fracture or malalignment. 2. Mild multilevel degenerative disease. 3. Mild facet arthropathy from L2 through L5 and severe facet arthropathy at the L5-S1 level. 4. No large disc herniation and no spinal stenosis. [facility], , 11/15/2024 3:51 PM
--- NOTE | 2024-11-15 16:01 | CT ---
EXAMINATION TYPE: CT abdomen pelvis wo con DATE OF EXAM: 11/15/2024 COMPARISON: 08/22/2024 CLINICAL INDICATION: Female, 69 years old with history of abdominal pain; PHH, flank pain TECHNIQUE: CT scan of the abdomen and pelvis is performed without oral or IV contrast. CT DLP: combined DLP 2569.[address] CTDI: mGy Automated exposure control for dose reduction was used. FINDINGS: Within the limitations of a non-contrast study, the following observations are made. The lungs are clear. There is surgical absence of the gallbladder. There is no biliary ductal dilatation. There is no organomegaly of the liver, pancreas, spleen or adrenal glands There are no renal calcifications or hydronephrosis. The caliber of the abdominal aorta is normal and there is no retroperitoneal adenopathy or hemorrhage . The bowel loops are normal in caliber is no evidence of obstruction. No inflammatory changes are iden tified in the mesentery and there is no free intraperitoneal air or fluid. There is no pelvic mass, free fluid, abscess or adenopathy. There is surgical absence of the uterus. The osseous structures and soft tissues are unremarkable. IMPRESSION: No acute changes within the abdomen or pelvis. There is no renal calcification or hydronephrosis. [facility], , 11/15/2024 3:59 PM
[2024-11-15 16:35] LABS: Appearance,Urine Clear (Clear); Bilirubin,Urine Negative (Negative); Blood,Urine Negative (Negative); Color,Urine Yellow; Glucose,Urine (UA) Negative (Negative); Ketones,Urine Negative (Negative); Leukocyte Esterase,Urine Small (Negative); Mucus,Urine Few /hpf; Nitrite,Urine Negative (Negative); PH, Urine 5.5 (5.0-8.0); Protein,Urine Negative (Negative); RBC,Urine 1 /hpf (0-5); Specific Gravity,Urine 1.021 (1.001-1.035); Squamous Epithelial Cell,Urine <1 /hpf (0-4); Urobilinogen,Urine <2.0 mg/dL (<2.0); WBC,Urine 4 /hpf (0-5)
--- NOTE | 2024-11-15 17:33 | ED ---
General Adult HPI - General Chief complaint: Recheck/Abnormal Lab/Rx Stated complaint: Loss of control of limbs/NV Time Seen by Provider: 11/15/24 13:00 Source: patient, RN notes reviewed, old records reviewed Mode of arrival: ambulatory Limitations: no limitations - History of Present Illness Initial comments: Patient is a 69-year-old female who presents emergency department complaining of abdominal pain as well as muscle twitching in her right lower extremity as well as right neck. Patient states this happens when she has kidney stones or severe pain. Denies any head injuries. Endorses chronic lightheadedness. Denies chest pain or shortness of breath. Presents for further evaluation at this time. Denies any bowel or bladder incontinence. Denies any saddle paresthesias. Denies any lower extremity paralysis. Patient can stop the spasms voluntarily. - Related Data Home Medications Medication Instructions Recorded Confirmed Bisoprolol/Hydrochlorothiazide 1 tab PO DAILY 11/24/14 11/15/24 [Ziac 5-6.25 MG] [place]-3 Acid Ethyl Esters [Lovaza] 2 gm PO HS 11/24/14 11/15/24 Niacin 500 mg PO DAILY 12/23/21 11/15/24 FLUoxetine HCL 40 mg PO DAILY 11/15/24 11/15/24 FLUoxetine HCL [PROzac] 20 mg PO DAILY 11/15/24 11/15/24 Pantoprazole [Protonix] 40 mg PO DAILY 11/15/24 11/15/24 buPROPion XL [Wellbutrin XL] 300 mg PO DAILY 11/15/24 11/15/24 Previous Rx's Medication Instructions Recorded Meclizine [Antivert] 25 mg PO TID PRN 7 Days #21 tab 11/15/24 Allergies Allergy/AdvReac Type Severity Reaction Status Date / Time No Known Allergies Allergy Verified 11/15/24 13:23 Review of Systems ROS Statement: Those systems with pertinent positive or pertinent negative responses have been documented in the HPI. Review of Systems: CONST: Denies fever EYES: Denies blurry vision ENT: Denies nasal congestion C/V: Denies Chest pain RESP: Denies shortness of breath GI: Endorses right flank pain : Denies dysuria SKIN: Denies rash. MSK: Denies joint pain. NEURO: Denies headache ROS Other: All systems not noted in ROS Statement are negative. Past Medical History Past Medical History: Hyperlipidemia Additional Past Medical History / Comment(s): kidney stones History of Any Multi-Drug Resistant Organisms: None Reported Past Surgical History: Cholecystectomy, Hysterectomy Additional Past Surgical History / Comment(s): kidney stone removal ,colonoscopy Past Anesthesia/Blood Transfusion Reactions: No Reported Reaction Past Psychological History: No Psychological Hx Reported Smoking Status: Never smoker Past Alcohol Use History: Rare Past Drug Use History: None Reported General Exam - General Exam Comments Initial Comments: General: Appears in mild distress. HEAD: Normal with no signs of head trauma. EYES: PERRLA, EOMI, conjunctiva normal, no discharge. Pupils are 3 mm and equal bilaterally. ENT: Hearing grossly intact, normal oropharynx. RESPIRATORY: Clear breath sounds bilaterally. No wheezes, rales, or rhonchi. C/V: Regular rate and rhythm. S1 and S2 auscultated, no edema, peripheral pulses 2+ and intact throughout ABD: Tenderness to palpation of the right flank. No guarding or rebound tenderness. No peritoneal signs. EXT: Normal range of motion, no obvious deformity patient does have spasming of the right lower extremity as well as of the right neck however she is able to voluntarily stop. States that is due to the abdominal discomfort she is experiencing. SKIN: No rashes or lesions observed on exposed skin. NEURO: Alert and oriented x 4. No focal deficits. Spasming but seems voluntary. Limitations: no limitations Course Vital Signs 11/15/24 11/15/24 11/15/24 12:36 14:14 16:10 Temperature 98.3 F Pulse Rate 50 L 80 80 Pulse Rate [ Painting Instructor ] Respiratory 18 20 18 Rate Blood Pressure 130/88 108/61 113/63 Blood Pressure [Right Arm Sitting] Blood Pressure [Right Arm Standing] Blood Pressure [Right Arm Supine] O2 Sat by Pulse 98 97 98 Oximetry 11/15/24 11/15/24 11/15/24 17:13 17:15 17:18 Temperature Pulse Rate Pulse Rate [ 86 87 87 Painting Instructor ] Respiratory Rate Blood Pressure Blood Pressure 126/66 [Right Arm Sitting] Blood Pressure 120/73 [Right Arm Standing] Blood Pressure 111/61 [Right Arm Supine] O2 Sat by Pulse 98 98 98 Oximetry 11/15/24 17:51 Temperature 98.1 F Pulse Rate 89 Pulse Rate [ Painting Instructor ] Respiratory 20 Rate Blood Pressure 127/74 Blood Pressure [Right Arm Sitting] Blood Pressure [Right Arm Standing] Blood Pressure [Right Arm Supine] O2 Sat by Pulse 95 Oximetry Procedures - [place] Protocol (Time Out) Nurse: Anuja Abebe Medical Decision Making - Medical Decision Making Was pt. sent in by a medical professional or institution (, PA, MANAGEMENT TRAINER, urgent ca re, hospital, or group home...) When possible be specific @ -No Did you speak to anyone other than the patient for history (EMS, parent, family, police, friend...)? What history was obtained from this source @ -No Did you review nursing and triage notes (agree or disagree)? Why? @ -I reviewed and agree with nursing and triage notes Were old charts reviewed (outside hosp., previous admission, EMS record, old EKG, old radiological studies, urgent care reports/EKG's, group home records)? Report findings @ -Reviewed old chart from August 2024 when patient presented with similar complaints. Differential Diagnosis (chest pain, altered mental status, abdominal pain women, abdominal pain men, vaginal bleeding, weakness, fever, dyspnea, syncope, headache, dizziness, GI bleed, back pain, seizure, CVA, palpatations, mental health, musculoskeletal)? @ -Differential Abdominal Pain Women: Appendicitis, Cholecystitis, diverticulosis, ischemic bowel, pancreatitis, hepatitis, UTI, gastroenteritis, AAA, incarcerated hernia, bowel obstruction, constipation, inflammatory bowel, hepatitis, peptic ulcer disease, splenic infarction, perforated viscus, vulvitis, ovarian torsion, PID, kidney stone, placenta abruption, this is not meant to be an all-inclusive list EKG interpreted by me (3pts min.). @ -As above X-rays interpreted by me (1pt min.). @ -None done CT interpreted by me (1pt min.). @ -CT brain, C-spine shows no obvious acute process. Lumbar spine CT shows no obvious acute process. Chronic degenerative changes present. Abdomen pelvis CT shows no obvious acute intra-abdominal process. U/S interpreted by me (1pt. min.). @ -None done What testing was considered but not performed or refused? (CT, X-rays, U/S, labs)? Why? @ -None What meds were considered but not given or refused? Why? @ -None Did you discuss the management of the patient with other professionals (professionals i.e. , PA, MANAGEMENT TRAINER, lab, RT, psych nurse, geriatric social worker, directional driller, teacher, adult probation officer, case filler)? Give summary @ -No Was smoking cessation discussed for >3mins.? @ -No Was critical care preformed (if so, how long)? @ -No Were there social determinants of health that impacted care today? How? (Homelessness, low income, unemployed, alcoholism, drug addiction, transportation, low edu. Level, literacy, decrease access to med. care, care home, rehab)? @ -No Was there de-escalation of care discussed even if they declined (Discuss DNR or withdrawal of care, Hospice)? DNR status @ -No What co-morbidities impacted this encounter? (DM, HTN, Smoking, COPD, CAD, Cancer, CVA, ARF, Chemo, Hep., AIDS, mental health diagnosis, sleep apnea, morbid obesity)? @ -None Was patient admitted / discharged? Hospital course, mention meds given and route, prescriptions, significant lab abnormalities, going to OR and other pertinent info. @ -Patient presents with right-sided abdominal pain with spasming of the right side of her body. We will obtain CT brain, C-spine as well as lumbar spine and abdomen/pelvis. This is in addition to abdominal labs. She was in agreement this plan. Vitals are within acceptable limits. Given IV Dilaudid and fluids. States she has chronic lightheadedness as well but currently does not have it. EKG shows no signs of acute ischemia. Laboratory studies remarkable for lactic acidosis of 3.2 which I think is likely secondary to the spasming and rhythmic motion of her arms and her legs when her abdomen is having pain. This was repeated after 1 L fluid bolus is not completely corrected. The remainder of the workup unremarkable. Imaging negative for any obvious acute process. After the patient. She is asymptomatic at this time. She will be discharged home at this time. Given a Tylenol 3 starter pack as well as a prescription for meclizine as she states she does have a chronic history of vertigo. She currently has no symptoms. Orthostatic vital signs within normal limits. Strict return precautions discussed. I instructed the patient to follow up with their PCP in the next 1-3 days. I explained that the patient should return to the emergency department if they experience any worsening symptoms. Strict return precautions were discussed with the patient. The patient expressed understanding of these instructions. I answered all questions that the patient had. The patient was discharged home in good condition with their prescriptions and follow up information. Undiagnosed new problem with uncertain prognosis? @ -No Drug Therapy requiring intensive monitoring for toxicity (Heparin, Nitro, Insulin, Cardizem)? @ -No Were any procedures done? @ -No Diagnosis/symptom? @ -Abdominal pain of unknown etiology Acute, or Chronic, or Acute on Chronic? @ -Acute Uncomplicated (without systemic symptoms) or Complicated (systemic symptoms)? @ -Uncomplicated Side effects of treatment? @ -No Exacerbation, Progression, or Severe Exacerbation? @ -No Poses a threat to life or bodily function? How? (Chest pain, USA, OR, pneumonia, PE, COPD, DKA, ARF, appy, cholecystitis, CVA, Diverticulitis, Homicidal, Suicidal, threat to staff... and all critical care pts) @ -Unlikely at this time - Lab Data Result diagrams: 11/15/24 13:12 11/15/24 13:12 Lab Results 11/15/24 11/15/24 11/15/24 Range/Units 13:12 13:12 13:12 WBC 7.09 (4.50-10.00) 10*3/uL RBC 4.46 (4.10-5.20) 10*6/uL Hgb 13.6 (12.0-15.0) g/dL Hct 40.1 (37.2-46.3) % MCV 89.9 (80.0-97.0) fL MCH 30.5 (27.0-32.0) pg MCHC 33.9 (32.0-37.0) g/dL Plt Count 328 (140-440) 10*3/uL MPV 8.7 L (9.5-12.2) fL Immature Gran % (Auto) 0.4 % Neutrophils % 58.8 % Lymphocytes % 23.6 % Monocytes % 13.3 % Eosinophils % 3.1 % Basophils % 0.8 % Immature Gran # 0.03 (0.00-0.04) 10*3/uL Neutrophils # 4.17 (1.80-7.70) 10*3/uL Lymphocytes # 1.67 (0.90-5.00) 10*3/uL Monocytes # 0.94 (0.20-1.00) 10*3/uL Eosinophils # 0.22 (0.04-0.35) 10*3/uL Basophils # 0.06 (0.00-0.10) 10*3/uL PT 10.1 (10.0-12.5) sec INR 0.9 (<1.2) APTT 22.0 (22.0-30.0) sec Sodium 139 (137-145) mmol/L Potassium 4.1 (3.5-5.1) mmol/L Chloride 104 (98-107) mmol/L Carbon Dioxide 25 (22-30) mmol/L Anion Gap 10 mmol/L BUN 17 (7-17) mg/dL Creatinine 0.77 (0.52-1.04) mg/dL Est GFR (CKD-EPI)AfAm >90 (>60 ml/min/1.73 sqM) Est GFR (CKD-EPI)NonAf 80 (>60 ml/min/1.73 sqM) Glucose 97 (74-99) mg/dL Lactic Ac Sepsis Rflx Plasma Lactic Acid [place] (0.7-2.0) mmol/L Calcium 9.5 (8.4-10.2) mg/dL Total Bilirubin 0.7 (0.2-1.3) mg/dL AST 23 (14-36) U/L ALT 21 (4-34) U/L Alkaline Phosphatase 90 (38-126) U/L Total Protein 6.6 (6.3-8.2) g/dL Albumin 4.0 (3.5-5.0) g/dL Amylase 86 (30-110) U/L Lipase 179 (23-300) U/L Urine Color Urine Appearance (Clear) Urine pH (5.0-8.0) Ur Specific [place] (1.001-1.035) Urine Protein (Negative) Urine Glucose (UA) (Negative) Urine Ketones (Negative) Urine Blood (Negative) Urine Nitrite (Negative) Urine Bilirubin (Negative) Urine Urobilinogen (<2.0) mg/dL Ur Leukocyte Esterase (Negative) Urine RBC (0-5) /hpf Urine WBC (0-5) /hpf Ur Squamous Epith Cells (0-4) /hpf Urine Mucus (None) /hpf 04/30/25 04/30/25 04/30/25 Range/Units 13:12 13:56 16:06 WBC (4.50-10.00) 10*3/uL RBC (4.10-5.20) 10*6/uL Hgb (12.0-15.0) g/dL Hct (37.2-46.3) % MCV (80.0-97.0) fL MCH (27.0-32.0) pg MCHC (32.0-37.0) g/dL Plt Count (140-440) 10*3/uL MPV (9.5-12.2) fL Immature Gran % (Auto) % Neutrophils % % Lymphocytes % % Monocytes % % Eosinophils % % Basophils % % Immature Gran # (0.00-0.04) 10*3/uL Neutrophils # (1.80-7.70) 10*3/uL Lymphocytes # (0.90-5.00) 10*3/uL Monocytes # (0.20-1.00) 10*3/uL Eosinophils # (0.04-0.35) 10*3/uL Basophils # (0.00-0.10) 10*3/uL PT (10.0-12.5) sec INR (<1.2) APTT (22.0-30.0) sec Sodium (137-145) mmol/L Potassium (3.5-5.1) mmol/L Chloride (98-107) mmol/L Carbon Dioxide (22-30) mmol/L Anion Gap mmol/L BUN (7-17) mg/dL Creatinine (0.52-1.04) mg/dL Est GFR (CKD-EPI)AfAm (>60 ml/min/1.73 sqM) Est GFR (CKD-EPI)NonAf (>60 ml/min/1.73 sqM) Glucose (74-99) mg/dL Lactic Ac Sepsis Rflx Y Plasma Lactic Acid [place] 3.2 H* 0.6 L (0.7-2.0) mmol/L Calcium (8.4-10.2) mg/dL Total Bilirubin (0.2-1.3) mg/dL AST (14-36) U/L ALT (4-34) U/L Alkaline Phosphatase (38-126) U/L Total Protein (6.3-8.2) g/dL Albumin (3.5-5.0) g/dL Amylase (30-110) U/L Lipase (23-300) U/L Urine Color Urine Appearance (Clear) Urine pH (5.0-8.0) Ur Specific [place] (1.001-1.035) Urine Protein (Negative) Urine Glucose (UA) (Negative) Urine Ketones (Negative) Urine Blood (Negative) Urine Nitrite (Negative) Urine Bilirubin (Negative) Urine Urobilinogen (<2.0) mg/dL Ur Leukocyte Esterase (Negative) Urine RBC (0-5) /hpf Urine WBC (0-5) /hpf Ur Squamous Epith Cells (0-4) /hpf Urine Mucus (None) /hpf 11/15/24 Range/Units 16:20 WBC (4.50-10.00) 10*3/uL RBC (4.10-5.20) 10*6/uL Hgb (12.0-15.0) g/dL Hct (37.2-46.3) % MCV (80.0-97.0) fL MCH (27.0-32.0) pg MCHC (32.0-37.0) g/dL Plt Count (140-440) 10*3/uL MPV (9.5-12.2) fL Immature Gran % (Auto) % Neutrophils % % Lymphocytes % % Monocytes % % Eosinophils % % Basophils % % Immature Gran # (0.00-0.04) 10*3/uL Neutrophils # (1.80-7.70) 10*3/uL Lymphocytes # (0.90-5.00) 10*3/uL Monocytes # (0.20-1.00) 10*3/uL Eosinophils # (0.04-0.35) 10*3/uL Basophils # (0.00-0.10) 10*3/uL PT (10.0-12.5) sec INR (<1.2) APTT (22.0-30.0) sec Sodium (137-145) mmol/L Potassium (3.5-5.1) mmol/L Chloride (98-107) mmol/L Carbon Dioxide (22-30) mmol/L Anion Gap mmol/L BUN (7-17) mg/dL Creatinine (0.52-1.04) mg/dL Est GFR (CKD-EPI)AfAm (>60 ml/min/1.73 sqM) Est GFR (CKD-EPI)NonAf (>60 ml/min/1.73 sqM) Glucose (74-99) mg/dL Lactic Ac Sepsis Rflx Plasma Lactic Acid [place] (0.7-2.0) mmol/L Calcium (8.4-10.2) mg/dL Total Bilirubin (0.2-1.3) mg/dL AST (14-36) U/L ALT (4-34) U/L Alkaline Phosphatase (38-126) U/L Total Protein (6.3-8.2) g/dL Albumin (3.5-5.0) g/dL Amylase (30-110) U/L Lipase (23-300) U/L Urine Color Yellow Urine Appearance Clear (Clear) Urine pH 5.5 (5.0-8.0) Ur Specific [place] 1.021 (1.001-1.035) Urine Protein Negative (Negative) Urine Glucose (UA) Negative (Negative) Urine Ketones Negative (Negative) Urine Blood Negative (Negative) Urine Nitrite Negative (Negative) Urine Bilirubin Negative (Negative) Urine Urobilinogen <2.0 (<2.0) mg/dL Ur Leukocyte Esterase Small H (Negative) Urine RBC 1 (0-5) /hpf Urine WBC 4 (0-5) /hpf Ur Squamous Epith Cells <1 (0-4) /hpf Urine Mucus Few H (None) /hpf - EKG Data -: EKG Interpreted by Me EKG Comments: 12-lead Electrocardiogram Interpretation Note EKG was reviewed and interpreted by myself. 12-lead ECG performed at 1345 is interpreted by me as revealing normal sinus rhythm at a rate of 81 beats per minute. [place] is normal. MO interval is 191 ms, QRS durations 89 ms, QTc is 426 ms.. There were no ST or T wave abnormalities to suggest myocardial ischemia or injury. R wave progression across the precordium was satisfactory. By my interpretation this EKG is non-diagnostic for acute ischemia. Disposition Clinical Impression: Abdominal pain of unknown etiology Disposition: HOME SELF-CARE Condition: Good Instructions (If sedation given, give patient instructions): Abdominal Pain (ED) Prescriptions: Meclizine [Antivert] 25 mg PO TID PRN 7 Days #21 tab PRN Reason: Vertigo Is patient prescribed a controlled substance at d/c from ED?: Yes When asked, does pt state using other controlled substances?: Yes If prescribed controlled substance>3 days was MAPS reviewed?: Prescribed <3 Days If opioid is for acute pain is fill amount 7 days or less?: Yes If Rx opioid, was Start Talking consent form obtained?: Yes Referrals: Jorje Torres Jr, DO [Primary Care Provider] - 1-2 days Time of Disposition: 17:30
[2024-11-15] MEDS: ACET/COD 300 MG/30 MG STARTER PACK 6 TAB BTL PO STA (17:45)
[2024-11-15 17:53] VITALS: BP 127/74; PULSE 89; RESP 20; TEMP 98.1
== END 2024-11-15 17:54 | disposition home or self-care (01) ==
LOC: EC 12:27
DX: R10.31 Right lower quadrant pain (principal)
CPT/HCPCS: 36415; 93005; 80053; 82150; 83605; 83690; 85025; 85610; 85730; 81001; 72125; 72131; 70450; 74176; 99284; 96374; 96375 ×2; 96361 ×2; J2405; J1171; J2470

== ENCOUNTER → 2024-12-05 | Outpatient (CLI) | payer MEDICARE ==
--- NOTE | 2024-12-06 09:17 | MM ---
Reason for Exam: Screening (asymptomatic). Last mammogram was performed 1 year(s) and 3 month(s) ago. Patient History: Menarche at age 16. First Full-Term at age 23. Left ovary removed at age 48. Right ovary removed at age 48. Hysterectomy at age 48. Postmenopausal. Patient has history of breast feeding. Progesterone for 1 year, 6 months. Hormonal Contraceptives for 6 months. Benign Excisional Biopsy on the left side. Risk Values: Isela 5 year model risk: 1.6%. NCI Lifetime model risk: 5.4%. Prior Study Comparison: 10/30/2021 Right Diagnostic Mammogram, [facility]. 05/28/2022 Bilateral MG 3D diag mammo w/cad [facility], [facility]. 09/03/2023 Bilateral MG 3D screening mammo w/cad, [facility]. Tissue Density: There are scattered areas of fibroglandular density. Findings: Analyzed By CAD. Right breast: There is no suspicious group of microcalcifications or new suspicious mass. Left breast: There is no suspicious group of microcalcifications or new suspicious mass. Overall Assessment: Negative, BI-RAD 1 Management: Screening Mammogram of both breasts in [address] [facility] will attempt to contact patient to return for supplemental views and ultrasound if indicated. Patient should continue monthly self-breast exams. A clinical breast exam by your physician is recommended on an annual basis. This exam should not preclude additional follow-up of suspicious palpable abnormalities. Note on Isela scores and lifetime risk: 1. A Isela score greater than 3% is considered moderate risk. If this is the case, consider specialist referral to assess eligibility for a risk reducing agent. 2. If overall lifetime risk for the development of breast cancer is 20% or higher, the patient may qualify for future screening with alternating mammogram and breast MRI. [facility], , 12/06/2024 9:14 AM. Electronically signed and approved by: Sai Medina DO
--- NOTE | 2024-12-07 12:09 | BD ---
EXAMINATION TYPE: Axial Bone Density DATE OF EXAM: 12/05/2024 CLINICAL HISTORY: 69 years old Female. ICD-10 CODE: M85.80 OTH DISRD OF BONE DENSITY , Additional H istory: Height: 4 ft 10 in Weight: 157 FRAX RISK QUESTIONS: Alcohol (3 or more units per day): no Family History (Parent hip fracture): no Glucocorticoids (More than 3mos): no (Ex: prednisone, prednisolone, methylprednisolone, dexamethasone, and hydrocortisone). History of Fracture in Adulthood: no Secondary Osteoporosis: 1. Type 1 Diabetes: no 2. Hyperthyroidism: no 3. Menopause before 45: no 4. Malnutrition: no 5. Chronic liver disease: no Rheumatoid Arthritis: no Current Tobacco Use: no RISK FACTORS HISTORY OF: Surgery to Spine/Hip(right/left)/Wrist (right/left): carpal tunnel bilaterally MEDICATIONS: Thyroid Medications: none Osteoporosis Medications: none : EXAM MEASUREMENTS: Bone mineral densitometry was performed using the [employer] System. Bone mineral density as measured about the Lumbar spine is: ----- L1-L4(G/cm2): 1.146 T Score Values are as follows: ----- L1: -1.9 ----- L2: 0.0 ----- L3: 0.1 ----- L4: 0.3 ----- L1-L4: -0.3 Z Score Values are as follows: ----- L1: -0.5 ----- L2: 1.4 ----- L3: 1.5 ----- L4: 1.8 ----- L1-L4: 1.2 Bone mineral density has: increased 2.6 % since study of: 2021 Bone mineral density about the R hip (g/cm2): 0.701 Bone mineral density about the L hip (g/cm2): 0.732 T Score values are as follows: -----R Neck: -2.4 -----L Neck: -2.2 -----R Total: -2.0 -----L Total: -1.5 Z Score values are as follows: -----R Neck: -0.9 -----L Neck: -0.7 -----R Total: -0.7 -----L Total: -0.3 Bone mineral density has: decreased -3.2 % since study of: 2021 FRAX%s: The graph provided illustrates a 13.1 % chance for a major osteoporotic fx and a 2.9 % chance for the hips probability for fx in 10 years time. IMPRESSION: Osteopenia (T Score between -2.5 and -1). There is slightly increased risk of fracture and the patient may be considered for treatment. Re-Screen 2-5 years. NOTE: T-SCORE=SD OF THE YOUNG ADULT MEAN. [facility], , 12/07/2024 12:07 PM
== END | disposition home or self-care (01) ==
LOC: RADMAMWWP 15:45
PROVIDERS: ATTEND Family Medicine
DX: Z12.31 Encounter for screening mammogram for malignant neoplasm of breast (principal); M85.89 Other specified disorders of bone density and structure, multiple sites; R92.323 Mammographic fibroglandular density, bilateral breasts; Z78.0 Asymptomatic menopausal state; Z92.0 Personal history of contraception
CPT/HCPCS: 77063; 77067; 77080